=== PATIENT | male | born 1960 | race Caucasian/White ===

== ENCOUNTER 2016-11-23 19:24 | Inpatient (IN) | payer OTHER ==
[~2016-11-23] VITALS: Ht 170.2 cm; Wt 83.9 kg
--- NOTE | 2016-11-23 19:34 | ED CARDIAC/CP/PALPITATIONS ---
History of Present Illness General Chief Complaint: Chest Pain Stated Complaint: SIB NADIRA FOR CP Source: patient Exam Limitations: no limitations Vital Signs & Intake/Output Vital Signs & Intake/Output Vital Signs Date Time Temp Pulse Resp B/P Pulse O2 O2 Flow FiO2 Ox Delivery Rate 11/235 79 18 126/77 98 Nasal 2.0L Cannula 11/23 2110 102/71 11/23 2100 109/71 11/23 2054 116/67 11/23 2014 118/76 11/23 2009 88 22 128/78 11/23 1950 85 Nasal 2.0L Cannula 11/23 1940 88 22 128/78 98 Room Air Allergies Coded Allergies: No Known Allergies (11/23/16) Reconcile Medications Amlodipine Besylate 2.5 MG TABLET 1 TAB PO DAILY BP (Reported) Atorvastatin Calcium 20 MG TABLET 1 TAB PO DAILY CHOLESTEROL (Reported) Reason to Stop at ADM: WILL CHANGE DOSE TO 40 Glyburide/Metformin HCl (Glyburide-Metformin 2.5-500 MG) 2.5 MG-500 MG TABLET 2 TAB PO BID DM (Reported) Reason to Stop at ADM: ON ISS Ibuprofen (Advil) 200 MG CAPSULE 2 TAB PO PRN PAIN (Reported) Losartan Potassium 50 MG TABLET 1 TAB PO DAILY BP (Reported) Reason to Stop at ADM: STARTING BETA MELISSA AND NITRO, ALREADY BORDERLINE LOW BP Sitagliptin Phosphate (Januvia) 100 MG TABLET 1 TAB PO DAILY DM (Reported) Reason to Stop at ADM: ISS Triage Nurses Notes Reviewed? yes Onset: Gradual Duration: week(s):, waxing and waning Timing: recent history Quality/Severity: moderate Location: central Radiation: no radiation Activities at Onset: none Prior Chest Pain/Card Workup: stress test Associated Symptoms: diaphoresis HPI: 56-year-old gentleman history of hyperlipidemia, hypertension, diabetes presents with 1.5 weeks of intermittent chest pain. He states that he often experiences chest pain with mild diaphoresis and occasional radiation down his left arm with exertion. He saw his primary care doctor who ordered a stress test which was done this morning. The stress test was positive. His primary care doctor referred him to the emergency department. Upon arrival, he states that the pain is 4 out of 10. He has no diaphoresis dizziness or radiation at present. Past History Travel History Traveled to [place] past 21 day No Medical History Any Pertinent Medical History? see below for history Cardiovascular: hyperlipidemia, myocardial infarction Endocrine: diabetes Surgical History Surgical History: none Family History Hx Contributory? No Review of Systems Review of Systems Constitutional: Reports: no symptoms. EENTM: Reports: no symptoms. Respiratory: Reports: no symptoms. Cardiovascular: Reports: no symptoms. GI: Reports: no symptoms. Genitourinary: Reports: no symptoms. Musculoskeletal: Reports: no symptoms. Skin: Reports: no symptoms. Neurological/Psychological: Reports: no symptoms. Hematologic/Endocrine: Reports: no symptoms. Immunologic/Allergic: Reports: no symptoms. All Other Systems: Reviewed and Negative Physical Exam Physical Exam General Appearance: well developed/nourished, mild distress Head: atraumatic, normal appearance Eyes: Bilateral: normal appearance. Ears, Nose, Throat: normal pharynx, normal ENT inspection Neck: normal inspection, supple, full range of motion Respiratory: normal breath sounds, chest non-tender, no respiratory distress, quiet respiration, lungs clear Cardiovascular: regular rate/rhythm Gastrointestinal: normal bowel sounds, soft, non-tender, no organomegaly Rectal: normal exam, normal rectal tone, heme negative stool Back: normal inspection, normal range of motion Extremities: normal inspection, normal capillary refill, normal range of motion, no edema Neurologic/Psych: no motor/sensory deficits, awake, alert, oriented x 3 Skin: intact, normal color, warm/dry Core Measures ACS in differential dx? No Severe Sepsis Present: No Septic Shock Present: No Progress Differential Diagnosis: AMI, CHF/pulm edema, pneumonia, pulmonary embolism, unstable angina, WPW syndrome Plan of Care: Orders Procedure Date/time Status Heart Healthy Diet 11/24 B Active TROPONIN LEVEL 11/24 0800 Active EKG 11/24 0800 Active ECHOCARDIOGRAM 11/24 0700 Active LIPID PANEL 11/24 0500 Active CBC WITHOUT DIFFERENTIAL 11/24 0500 Active BASIC ELECTROLYTES PLUS BUN&CR 11/24 0500 Active TROPONIN LEVEL 11/24 0200 Active EKG 11/24 0200 Active VRE ACTIVE SURVIELLANCE 11/23 231 Active ACTIVE SURVEILLANCE NARES 11/23 231 Active Lab Add-on Test 11/23 230 Active Pathway - chart 11/23 2218 Active Code Status 11/23 2218 Active Patient Data 11/23 2119 Active Admit to inpatient 11/23 2049 Active EKG 11/23 2033 Active Intake & Output 11/23 2011 Active GLYCOSYLATED HGB 02/24 1940 Active TROPONIN LEVEL 11/23 1935 Complete PARTIAL THROMBOPLASTIN TIME 11/23 1935 Complete PROTHROMBIN TIME 11/23 1935 Complete LIPASE 11/23 1935 Complete HEPATIC FUNCTION PANEL 11/23 1935 Complete CBC WITHOUT DIFFERENTIAL 11/23 1935 Complete BASIC METABOLIC PANEL 11/23 1935 Complete AMYLASE 11/23 1935 Complete EKG 11/23 1928 Active EKG 11/23 1927 Active Pathway - chart 11/23 UNK Active House Staff 11/23 UNK Active Hemoccult 11/23 UNK Active FingerStick- Glucose 11/23 UNK Active Current Medications Sig/Vaelrie Start time Last Medication Dose Stop Time Status Admin Atorvastatin Calcium 40 MG 1700 11/24 1700 UNVr (Lipitor) Aspirin 81 MG DAILY 11/24 1000 UNVr (Aspirin) Clopidogrel Bisulfate 75 MG DAILY 11/24 1000 UNVr (Plavix) Metoprolol Tartrate 12.5 MG BID 11/24 1000 UNVr (Lopressor) Insulin Aspart 0 TIDAC 11/24 0800 UNVr (NovoLOG) Nitroglycerin 0.5 GM Q6 11/24 0600 UNVr (Nitro-Bid) Acetaminophen 650 MG Q6P PRN 11/23 2229 AC (Tylenol) Heparin Sodium 25,000 UNIT Q24H 11/23 2229 UNVr (Porcine) (Heparin) Sodium Chloride 500 ML Nitroglycerin 0.4 MG Q 5 MINUTES X 3 DO.. 11/23 2229 UNVr (Nitrostat) Oxycodone/ 1 TAB Q6P PRN 11/23 2229 UNVr Acetaminophen (Percocet) Oxycodone/ 2 TAB Q6P PRN 11/23 2229 UNVr Acetaminophen (Percocet) Laboratory Tests 11/23/161939: Hemoglobin A1c Pending 11/23/161939: Anion Gap 16, Estimated GFR > 60, BUN/Creatinine Ratio 15.8, Glucose 130 H, Calcium 9.8, Total Bilirubin 0.5, Direct Bilirubin 0.4, AST 29, ALT 54, Alkaline Phosphatase 55, Troponin I < 0.01, Total Protein 7.6, Albumin 4.6, Amylase 62, Lipase 129, PT 11.0, INR 1.05, APTT 31, CBC w Diff NO MAN DIFF REQ, RBC 5.28, MCV 91.9, MCH 29.8, RDW 13.5, MPV 9.3, Gran % 58.7, Lymphocytes % 29.5, Monocytes % 8.1, Eosinophils % 1.5, Basophils % 2.2 H, Absolute Granulocytes 6.7 H, Absolute Lymphocytes 3.4, Absolute Monocytes 0.9 H, Absolute Eosinophils 0.2, Absolute Basophils 0.2, PUBS MCHC 32.4 L Microbiology 11/23 2312 UPPER RESP: Surveillance Culture - ORD 11/23 2312 GI: Surveillance Culture - ORD Diagnostic Imaging: Viewed by Me: Nuclear Medicine. Discussed w/RAD: Nuclear Medicine. Radiology Impression: cardiac spect scan... abnormal, with reversible deficit as below. , ct angio... no pe. full report below. CXR Impression: no acute abnormality, no infiltrates, normal size heart, normal mediastinum Initial ED EKG: normal axis, normal intervals, normal p-waves, normal QRS complex, normal sinus rhythm Repeat EKG: unchanged Comments: PATIENT: ANTOINE FLOWERS PRESENT AGE: 56 PATIENT ACCOUNT NO: [id number] : 58 LOCATION: [facility] ORDERING PHYSICIAN: ZAHRA CONNER MD SERVICE DATE: 11/23/16 EXAM TYPE: CAT - CTA CHEST-PULMONARY EMBOLISM EXAMINATION: CT ANGIOGRAM OF THE CHEST WITH AND WITHOUT CONTRAST (CT PULMONARY ANGIOGRAM FOR PE) CLINICAL INFORMATION: 56-year-old male patient with chest pain. COMPARISON: Chest x-ray done earlier this evening. CT of the chest done on 11/09/2011. (Emphysema). TECHNIQUE: Prior to contrast administration, noncontrast localization images were obtained. Subsequently, multidetector volumetric imaging was performed from the thoracic inlet to below the diaphragms following the administration of 80 mL Optiray 350 intravenous contrast. No contrast reaction reported Sagittal, coronal, and MIP oblique sagittal reformatted images were obtained on the CT workstation, uploaded to PACS, and reviewed. Total exam dose-length product 518 mGy-cm FINDINGS: The data center consultant is unrevealing. QUALITY OF STUDY/CONTRAST BOLUS: Excellent. PULMONARY ARTERIES: No central or segmental pulmonary emboli. THORACIC AORTA: No aneurysm or dissection. LUNG: No focal consolidation, nodules or masses. PLEURA: No pleural effusion or pneumothorax. MEDIASTINUM: Normal heart size. No pericardial effusion. No significant hilar or mediastinal lymphadenopathy. Subcentimeter lymph nodes are present in the AP window. No evidence of septal bowing or right heart strain. CHEST WALL/AXILLA: No axillary or internal mammary lymphadenopathy. OSSEOUS STRUCTURES: No acute or suspicious osseous abnormality. UPPER ABDOMEN: The liver is diffusely infiltrated by fat. Focal area of fatty sparing is seen in the gallbladder fossa. The stomach is considerably distended by a recently ingested food. A small accessory spleen is evident. No reflux of contrast into the hepatic veins to suggest elevated right heart pressures. IMPRESSION: No evidence of pulmonary emboli. No acute lung disease. Fatty liver. Normal thoracic aorta. VTE: negative DICTATED BY: ANIL PAUL MD DATE/TIME DICTATED:11/23/162253 DEICER REPAIRER ELECTRIC:NGA DATE/TIME TRANSCRIBED:11/23/162253 CONFIDENTIAL, DO NOT COPY WITHOUT APPROPRIATE AUTHORIZATION. <Electronically signed in Other Vendor System> SIGNED BY: ANIL PAUL MD [id number] PATIENT: ANTOINE FLOWERS PRESENT AGE: 56 PATIENT ACCOUNT NO: [id number] : 58 LOCATION: [facility] ORDERING PHYSICIAN: PRISCILLA WADDELL DO SERVICE DATE: 11/23/16 EXAM TYPE: NUC - MYOCARDIAL PERFUSION IMAGING EXERCISE STRESS AND RESTING SPECT MYOCARDIAL PERFUSION IMAGING STUDY WITH GATED SPECT IMAGES: CLINICAL INDICATION: Chest pain, hypertension. PROCEDURE: Regional myocardial perfusion was assessed using a 1 day protocol. Stress images were obtained on 11/23/2016 following the intravenous administration of 18.8 mCi Tc 99m Myoview. Stress was performed using the standard Luc protocol, with the patient reaching a peak heart rate of 86% maximal predicted heart rate. Rest images were obtained 11/23/2016 following the intravenous administration of 29.2 mCi Technetium 99m Myoview. Single photon emission tomographic (SPECT) images were obtained. SPECT images were acquired in a 64 x 64 matrix of 64 projections over 180 degrees. These were reconstructed into standard short axis, horizontal and vertical long axis cardiac projections. FINDINGS: The post stress images show the left ventricular chamber to be normal in size. There is a small region of moderately to markedly diminished activity involving the mid and basal segments of the inferior wall and this probably extends slightly into the apical inferior wall segment. The activity in the other brasher appears normal. Side of the inferior wall abnormality may be due to attenuation by the adjacent diaphragm which is well visualized on review of the 4 acquired projections. The rest images also show a small region of moderately decreased activity in the inferior wall, similar to the post stress images but smaller in size with little no involvement at the apical inferior wall. The other brasher appear normal and are unchanged from the post stress images. The stress images were obtained using a gated SPECT technique, which permits visualization of wall motion and calculation of the left ventricular ejection fraction. No left ventricular wall motion abnormalities are noted. The calculated left ventricular ejection fraction is 45% on the stress study. No previous study is available for comparison. IMPRESSION: Probable abnormal study demonstrating a small perfusion abnormality involving the inferior wall, with minimal reversible component suggested at the apical inferior wall. There is significant attenuation of the inferior wall by the adjacent diaphragm, and the latter could be responsible for most of this decreased activity, but there does appear to BE a significant change in the apical inferior wall suggesting some significant reversible ischemia in this region. Left ventricular wall motion appears normal and the ejection fraction is at the lower limits of normal. DICTATED BY: KAILA SHRESTHA MD DATE/TIME DICTATED:11/23/161535 DEICER REPAIRER ELECTRIC:NGA DATE/TIME TRANSCRIBED:11/23/161535 CONFIDENTIAL, DO NOT COPY WITHOUT APPROPRIATE AUTHORIZATION. <Electronically signed in Other Vendor System> SIGNED BY: KAILA SHRESTHA MD [id number] Departure Departure Disposition: STILL A PATIENT Condition: Stable Clinical Impression Primary Impression: Unstable angina Referrals: PRISCILLA WADDELL DO (PCP/Family) Departure Forms: Customer Survey General Discharge Information Comments 11/23/16, 21:00.... discussed with dr. best x2.... trop negative, ekg benign x 2, pt with 1.5 weeks of chest pain... ct angio ordered to assess for PE... pt to be admitted to ICU. Given his benign EKG and negative troponin, no need for urgent at present. Admission Note Spoke With: AGA SENA MD Documentation of Exam: Documentation of any treatments & extenuating circumstances including Concerns Regarding Discharge (functional status, medication knowledge or non-compliance, living conditions, etc.) that warrant an admission rather than observation: Patient with chest pain consistent with unstable angina given his positive stress test this morning. He'll be admitted to the ICU for medical management. Critical Care Note Critical Care Note Critical Care Time: 30-74 min Comments: pt given nitrates, heparin, aspirin, bblocker, morphine... discussed with family at length, dr. nasir flores 2, hospitalist.
[2016-11-23 19:53] LABS: ABSOLUTE BASOPHIL COUNT 0.2 /CUMM (0.0-0.2); ABSOLUTE EOSINOPHIL COUNT 0.2 /CUMM (0.0-0.7); ABSOLUTE GRANULOCYTE CT 6.7 /CUMM (1.4-6.5); ABSOLUTE LYMPH COUNT 3.4 /CUMM (1.2-3.4); ABSOLUTE MONOCYTE COUNT 0.9 /CUMM (0.10-0.60); BASOPHIL % 2.2 % (0.0-2.0); EOSINOPHIL % 1.5 % (0-5); GRANULOCYTE % 58.7 % (42.2-75.2); HEMATOCRIT 48.6 % (42-52); MEAN CORPUSCULAR HGB 29.8 PG (27.0-31.0); MEAN CORPUSCULAR HGB CONC 32.4 G/DL (33.0-37.0); MEAN CORPUSCULAR VOLUME 91.9 FL (80.0-94.0); MEAN PLATELET VOLUME 9.3 FL (7.4-10.4); RBC DISTRIBUTION WIDTH 13.5 % (11.5-14.5); RED BLOOD CELL CT 5.28 /CUMM (4.70-6.10)
[2016-11-23 20:07] LABS: PTT 31 SEC (25-37); WHITE BLOOD CELL COUNT 11.8 /CUMM (4.8-10.8)
[2016-11-23 20:08] LABS: PLATELET COUNT 245 /CUMM (130-400)
[2016-11-23] MEDS ORDERED: AMLODIPINE BES2.5 M1 PO (21:15)
[2016-11-23] MEDS ORDERED: JANUVIA100 M1 PO (21:15)
[2016-11-23] MEDS ORDERED: LOSARTAN POTASS50 M1 PO (21:16)
[2016-11-23] MEDS ORDERED: GLYBURIDE-METF1 EAC1 PO (21:16)
[2016-11-23] MEDS ORDERED: ATORVASTATIN CA20 M1 PO (21:17)
[2016-11-23] MEDS ORDERED: ADVIL200 M1 PO (21:18)
--- NOTE | 2016-11-23 21:27 | RADIOLOGY REPORT ---
EXAMINATION: XR PORTABLE CHEST CLINICAL INFORMATION: Chest pain COMPARISON: 10/29/2013 TECHNIQUE: Portable AP view of the chest was obtained. FINDINGS: The cardiomediastinal silhouette is normal. The lungs are clear. No consolidation, pulmonary edema, pleural effusion, or pneumothorax. Lung volumes are lower than on the prior study. No acute osseous abnormalities. IMPRESSION: Low lung volumes without acute abnormality.
--- NOTE | 2016-11-23 22:44 | History & Physical ---
[facility]229: General Information and HPI MD Statement: I have seen and personally examined ANTOINE FLOWERS and documented this H&P. The patient is a 56 year old M who presented with a patient stated chief complaint of CHEST PAIN. Source of Information: patient, , Diana Exam Limitations: no limitations History of Present Illness: 56 year old man, with a past medical history of hypertension, non-insuli dependent diabetes, hyperlipidemia, GERD, presents to the ED today with a complian of chest pain. According to the patient he started having chest pain 1.5 weeks ago, intermittent, initially 7/10, pressure like, as if some body is sitting on his chest, initially only substernal but since the past couple of days it had started radiating to the left shoulder. At the time the chest pain initially started a week and a half ago, he does not recall doing any strebous work and his pain is not related to activity but has it even if he is resting. He had a stress test with Dr. Thompson today during which he became diaphoretic, develop chest pressure, and had to leave it is ST depressions on his EKG when the stress test was stopped. And he was asked to come to the ED for further evaluation. In the ED the patient continued to have chest pain, 4/10, substernal, slight radiation to the left shoulder, did not resolve with sublingual nitroglycerin but eventually resolved with IV morphine. At the time of evaluation by the ICU team the patient was completely chest pain-free. The patient had been a chronic smoker, smoked 1 pack per day for 30 years but quit 20 years ago. Code with patient's the patient was recently started on amlodipine 2.5 mg, which he picked up from the pharmacy today and has not started yet. He is also diabetic, compliant with his medications, but is not regularly checking his blood sugars at home. Last random blood sugar was 145. He denies any shortness of breath, nausea vomiting diarrhea, fever or chills, abdominal pain, changes in urination, constipation. His not have a history of recent travel or recent sickness, neither does he have a history of recent admissions to the hospital. No family history of clots either. Allergies/Medications Allergies: Coded Allergies: No Known Allergies (11/23/16) Home Med list Amlodipine Besylate 2.5 MG TABLET 1 TAB PO DAILY BP (Reported) Atorvastatin Calcium 20 MG TABLET 1 TAB PO DAILY CHOLESTEROL (Reported) Reason to Stop at ADM: WILL CHANGE DOSE TO 40 Glyburide/Metformin HCl (Glyburide-Metformin 2.5-500 MG) 2.5 MG-500 MG TABLET 2 TAB PO BID DM (Reported) Reason to Stop at ADM: ON ISS Ibuprofen (Advil) 200 MG CAPSULE 2 TAB PO PRN PAIN (Reported) Losartan Potassium 50 MG TABLET 1 TAB PO DAILY BP (Reported) Reason to Stop at ADM: STARTING BETA VINNIE AND NITRO, ALREADY BORDERLINE LOW BP Sitagliptin Phosphate (Januvia) 100 MG TABLET 1 TAB PO DAILY DM (Reported) Reason to Stop at ADM: ISS Compliance With Home Meds: GOOD Past History Travel History Traveled to [place] past 21 day No Medical History Neurological: NONE EENT: NONE Cardiovascular: hyperlipidemia, hypercholesterolemia Respiratory: NONE Gastrointestinal: GERD Hepatic: NONE Renal: NONE Musculoskeletal: NONE Psychiatric: NONE Endocrine: diabetes Surgical History Surgical History: appendectomy, left knee ACL repair Past Family/Social History Family History Relations & Conditions if any FATHER (Cancer (unknown which kind)). grand father (Heart Attack at 70 years of age). Psychosocial History Where do you live? Home Who Do You Live With? spouse Services at Home: None Primary Language: Maori Smoking Status: Former Smoker (1 PPD x 30 yrs, quit 2 yrs ago) ETOH Use: occasional use Illicit Drug Use: denies illicit drug use Name of POA/HCP: Diana, , next to kin Functional Ability ADLs Independent: dressing, eating, toileting, bathing. Ambulation: independent IADLs Independent: shopping, housework, finances, food prep, telephone, transportation , medication admin. Employment History Employment Employed Profession/Employer Works for [employer] Review of Systems Review of Systems Constitutional: Reports: see HPI. EENTM: Reports: no symptoms. Cardiovascular: Reports: chest pain. Denies: edema, peripheral edema, syncope. Respiratory: Reports: cough, orthopnea, short of breath. GI: Reports: no symptoms. Genitourinary: Reports: no symptoms. Musculoskeletal: Reports: no symptoms. Skin: Reports: no symptoms. Neurological/Psychological: Reports: no symptoms. Hematologic/Endocrine: Reports: no symptoms. Immunologic/Allergic: Reports: no symptoms. Colonoscopy Testing Status: Test never done Exam & Diagnostic Data Last 24 Hrs of Vital Signs/I&O Vital Signs Date Time Temp Pulse Resp B/P Pulse O2 O2 Flow FiO2 Ox Delivery Rate 11/23 2155 79 18 126/77 98 Nasal 2.0L Cannula 11/23 2110 102/71 11/23 2100 109/71 11/23 2054 116/67 11/23 2014 118/76 11/23 2009 88 22 128/78 11/23 1950 85 Nasal 2.0L Cannula 11/23 1940 88 22 128/78 98 Room Air Physical Exam General Appearance Alert, Oriented X3, Cooperative, No Acute Distress, but anxious with facial plethora due to stress Skin No Rashes, No Breakdown, No Significant Lesion HEENT Atraumatic, PERRLA, EOMI, dry mucous membranes Neck Supple, No JVD Lymphatic Cervical nl Cardiovascular Regular Rate, Normal S1, Normal S2, No Murmurs Lungs Clear to Auscultation, Normal Air Movement Abdomen Normal Bowel Sounds, Soft, No Tenderness, No Hepatospenomegaly Neurological Normal Speech, Strength at 5/5 X4 Ext, Normal Tone, Sensation Intact, Cranial Nerves 3-12 NL Extremities No Clubbing, No Cyanosis, No Edema, Normal Pulses Vascular Normal Pulses, Pulses Symmetrical Last 24 Hrs of Labs/Rojas: Laboratory Tests 11/23/161939: Anion Gap 16, Estimated GFR > 60, BUN/Creatinine Ratio 15.8, Glucose 130 H, Calcium 9.8, Total Bilirubin 0.5, Direct Bilirubin 0.4, AST 29, ALT 54, Alkaline Phosphatase 55, Troponin I < 0.01, Total Protein 7.6, Albumin 4.6, Amylase 62, Lipase 129, PT 11.0, INR 1.05, APTT 31, CBC w Diff NO MAN DIFF REQ, RBC 5.28, MCV 91.9, MCH 29.8, RDW 13.5, MPV 9.3, Gran % 58.7, Lymphocytes % 29.5, Monocytes % 8.1, Eosinophils % 1.5, Basophils % 2.2 H, Absolute Granulocytes 6.7 H, Absolute Lymphocytes 3.4, Absolute Monocytes 0.9 H, Absolute Eosinophils 0.2, Absolute Basophils 0.2, PUBS MCHC 32.4 L Diagnostic Data EKG Results @19:32 NSR 83, minimal Q waves not meeting criteria for Q waves @ 20:40 NSR 76, no ST-Twave changes CXR Results The cardiomediastinal silhouette is normal. The lungs are clear. No consolidation, pulmonary edema, pleural effusion, or pneumothorax. Lung volumes are lower than on the prior study. No acute osseous abnormalities. IMPRESSION: Low lung volumes without acute abnormality. Assessment/Plan Assessment: 56 year old man, with a past medical history of hypertension, non-insuli dependent diabetes, hyperlipidemia, GERD, presents to the ED today with a complian of chest pain, and 1.5 weeks, and to begin, substernal, pressure-like, radiating to his shoulder, initially / at peak and a half ago, on presentation 01/07 today, resolved with IV morphine, but did not resolve with nitroglycerin, plus negative troponin, no EKG changes, normal sinus rhythm at 76 , but a positive stress stress that in the morning today with [address] depression , chest pressure and diaphoresis, being admitted to ICU for closer monitoring, with the management. Assessment: 1. Unstable angina 2. Hypertension 3. Ukn-yycgqqz-iqsxgcxoo Diabetes 4. Hyperlipidemia 5. GERD Plan: Admit to ICU Vitals according to ICU protocol 1. Unstable angina: - With the chest pain that has been going on for 1.5 weeks, intermittent, at rest, negative troponins, no EKG changes, responded to IV morphine and not nitroglycerin, with a positive stress stress, the patient is greatly principal angina. Less likely pulmonary embolism however the possibility cannot be completely ruled out in this patient has a CT scan. has been a smoker but has no history of recent travel across the family. With the ongoing chest pain, the chances of dissection seem less likely as well. - As the patient currently is chest pain-free, but troponin is negative, with no EKG changes, will continue monitoring the ICU - Loading dose of aspirin and Plavix has been given - Continue with aspirin 81 by mouth daily and Plavix 75 mg daily - Started on IV heparin after a heparin bolus - We'll start metoprolol at 12.5 by mouth twice a day - We'll change atorvastatin 20 mg 40 mg - We'll check fasting lipid panel in the morning - Guaiac was done in the ED which was negative - Was troponin is negative at 7:40 pm, will check at 2 AM and 8 AM - Check an EKG 2 AM and 8 AM - Check an echocardiogram in the morning - We will keep her nitroglycerin sublingual 0.5 when necessary chest pain - We'll start her nitroglycerin, half inch every 6 from tomorrow, watch her blood pressure as he is already borderline low with blood pressure being 102/71 - If the patient has recurrent chest pain, ongoing, any EKG changes were positive troponin, the whip operator, will be updated for possible emergent cath - For now the plan as per Dr. Thompson is to monitor over the weekend for an elective cath on Saturday 2. Hypertension: - The patient has a history of hypertension, takes losartan 50 mg daily at home - According to the , hewas recently started on amlodipine, which was prescribed on November 19, but the patient obtained have started yet - The patient's blood pressure in the after the nitroglycerin was 102/71, will monitor blood pressure and hold losartan and amlodipine for now - Important to note that he will likely be requiring nitro paste and has been started on beta vinnie as well 3. Ktt-mixfwqr-utttweaul Diabetes: - The patient takes Januvia, glyburide/metformin at home - We'll hold by mouth meds and start an insulin sliding scale - Will add on HbA1c - Serum Glucose 130 4. Hyperlipidemia: - The patient has a history of hyperlipidemia ans takes Atorvastatin 20 mg - Will change it to Atorvastatin 40 mg PO Daily - Will check fasting lipid level in am 5. GERD: - Currently o aymptoms - Takes o meds but takes ibuprofen on and off - Hold ibuprofen 6. Heart Healthy/Diabetic diet 7. Pain Pathway: Mild: Acetaminophen when necessary. Pain 1-3 Moderate: Percocet 1 tablet every 6 when necessary. Pain 4-6. Severe: Percocet 2 tablets every 6 hours when necessary pain. 7-10 8. DVT prophylaxis: The patient is on IV heparin 9. Full CODE STATUS As Ranked By This Provider Problem List: 1. Unstable angina 2. Hyperlipidemia 3. Hypertension 4. Diabetes 5. DVT prophylaxis 6. Full code status Core Measures/Miscellaneous Acute Coronary Syndrome ACS Diagnosis: Yes SHAD/ARB For EF <40% Yes ASA W/I 24hr of admit Yes Beta-Vinnie W/I 24hrs Yes LDL assessed W/I 24 hrs Yes Currently on Statin Yes Cerebrovascular Accident CVA/TIA Diagnosis: Yes Congestive Heart Failure CHF Diagnosis: Yes Venous Thromboembolism VTE Risk Factors: Acute medical illness, Age > 40, Smoking VTE Prophylaxis Ordered Inpt: [facility] d/t: No contraindications No VTE Pharm Prophylaxis d/t: No contraindications VTE Diagnosis: No VTE Type: NONE VTE Confirmed by (Test): NONE Severe Sepsis Severe Sepsis Present: No Septic Shock Septic Shock Present: No Miscellaneous Documentation Attending Case Discussed With: LISETTE SENA Primary Care Physician: PRISCILLA WADDELL DO Patient sees these Specialists Dr. Thompson, whip operator Level of Patient Care: Critical Care (CRI) Consults Needed: Consulting Specialty: Cardiology Consulting Physician: Dr. Thompson Reason for Consult: Unstable Angina Resident Review Statement Resident Statement: examined this patient, discussed with nutrition intern, agreed with nutrition intern, reviewed EMR data (avail), reviewed images Other Findings: Same as Above NATHEN ALVAREZ, [facility] 11/24/16 0204: Attending MD Review Statement Attending Statement Attending MD Statement: examined this patient, discuss w/resident/PA/EROSION CONTROL COORDINATOR, agreed w/resident/PA/EROSION CONTROL COORDINATOR, discussed with family Attending Assessment/Plan: 56 yo M with h/o HTN, T2DM, HLD, GERD, is here 1.5 week h/o substernal chest pressure radiating to the left arm, about 7/10, intermittent, mostly at rest but could be exertional, associated with diaphoresis, nausea and dizziness off and on. Today he had a stress test with Dr. Thompson, noted to have ST-T changes, diaphoresis and chest pressure during the test. The test has been read as abnormal with inferior wall abnormality with significant reversible ischemia, EF is normal. The results were relayed to patient's PCP who then advised patient to come to ER. While in the ER, he stated his chest pressure was a 4/10 and was completely relieved after morphine. On my evaluation, patient was pain free. Family h/o paternal grandfather with CAD at age 70. Vitals stable. Exam unremarkable. Guaiac negative. Labs: WBC 11.8, bicarb 21, glucose 130, trop neg, EKG: SR, 1st degree heart block, Qtc 442, no acute changes. CXR: low lung volumes, no acute abn. CTA chest: no PE or aortic dissection. 1. Unstable angina with a positive stress test, however pain free at this time. ICU admit, serial EKG and troponin, obtain Echo, aspirin, plavix, metoprolol, statin, nitropaste, IV morphine PRN, IV heparin, guaiac all stools, check lipid panel, TSH, free T4. Cardio consult. If patient develops chest discomfort or any new EKG changes, we will transfer patient for urgent cardiac cath. I discussed this personally with Dr. Thompson. Until then we will monitor him in the ICU, medical management and elective cath next week. I have explained the same to patient and his at bedside. 2. T2DM. Accucheks, check HbA1c, hold metformin, januvia and glyburide. Initiate novolog SS for now. 3. HTN. Hold losartan and amlodipine. DVT ppx IV Heparin. Full code. TTS > 35 mins
--- NOTE | 2016-11-23 23:07 | CT SCAN REPORT ---
EXAMINATION: CT ANGIOGRAM OF THE CHEST WITH AND WITHOUT CONTRAST (CT PULMONARY ANGIOGRAM FOR PE) CLINICAL INFORMATION: 56-year-old male patient with chest pain. COMPARISON: Chest x-ray done earlier this evening. CT of the chest done on 11/09/2011. (Emphysema). TECHNIQUE: Prior to contrast administration, noncontrast localization images were obtained. Subsequently, multidetector volumetric imaging was performed from the thoracic inlet to below the diaphragms following the administration of 80 mL Optiray 350 intravenous contrast. No contrast reaction reported Sagittal, coronal, and MIP oblique sagittal reformatted images were obtained on the CT workstation, uploaded to PACS, and reviewed. Total exam dose-length product 518 mGy-cm FINDINGS: The hris administrator is unrevealing. QUALITY OF STUDY/CONTRAST BOLUS: Excellent. PULMONARY ARTERIES: No central or segmental pulmonary emboli. THORACIC AORTA: No aneurysm or dissection. LUNG: No focal consolidation, nodules or masses. PLEURA: No pleural effusion or pneumothorax. MEDIASTINUM: Normal heart size. No pericardial effusion. No significant hilar or mediastinal lymphadenopathy. Subcentimeter lymph nodes are present in the AP window. No evidence of septal bowing or right heart strain. CHEST WALL/AXILLA: No axillary or internal mammary lymphadenopathy. OSSEOUS STRUCTURES: No acute or suspicious osseous abnormality. UPPER ABDOMEN: The liver is diffusely infiltrated by fat. Focal area of fatty sparing is seen in the gallbladder fossa. The stomach is considerably distended by a recently ingested food. A small accessory spleen is evident. No reflux of contrast into the hepatic veins to suggest elevated right heart pressures. IMPRESSION: No evidence of pulmonary emboli. No acute lung disease. Fatty liver. Normal thoracic aorta. VTE: negative
[2016-11-24] VITALS: BP 126/88
--- NOTE | 2016-11-24 02:00 | Admission Certification ---
Admission Certification Certification Statement - As attending physician, I certify that at the time of - admission, based on clinical presentation, severity of - symptoms, need for further diagnostic testing and - therapeutic interventions, and risk of adverse outcomes - without in-hospital treatment, in my clinical assessment, - this patient requires an acute hospital stay for a minimum - of two nights or longer. I have also considered psychsocial - factors such as support system, advanced age, financial - issues, cognitive issues, and failed out-patient treatments, - past re-admission history, safety of patient, and lack of - compliance as applicable. Specific rationale supporting this admission is: Unstable angina, positive stress test. Needs ICU level of care with initiation of IV heparin and eventual cardiac cath.
[2016-11-24 03:28] LABS: PTT 40 SEC (25-37)
[2016-11-24 07:00] LABS: ABSOLUTE EOSINOPHIL COUNT 0.2 /CUMM (0.0-0.7); MEAN CORPUSCULAR HGB 30.5 PG (27.0-31.0); MEAN CORPUSCULAR VOLUME 91.8 FL (80.0-94.0); WHITE BLOOD CELL COUNT 7.3 /CUMM (4.8-10.8)
[2016-11-24 07:04] LABS: ABSOLUTE BASOPHIL COUNT 0.1 /CUMM (0.0-0.2); ABSOLUTE GRANULOCYTE CT 3.5 /CUMM (1.4-6.5); ABSOLUTE MONOCYTE COUNT 0.6 /CUMM (0.10-0.60); BASOPHIL % 0.9 % (0.0-2.0); EOSINOPHIL % 2.3 % (0-5); GRANULOCYTE % 48.5 % (42.2-75.2); MEAN CORPUSCULAR HGB CONC 33.2 G/DL (33.0-37.0); MEAN PLATELET VOLUME 10.1 FL (7.4-10.4); PLATELET COUNT 207 /CUMM (130-400); RBC DISTRIBUTION WIDTH 13.7 % (11.5-14.5); RED BLOOD CELL CT 4.53 /CUMM (4.70-6.10)
[2016-11-24 07:07] LABS: HEMATOCRIT 41.6 % (42-52)
[2016-11-24 08:00] VITALS: BP 102/70
--- NOTE | 2016-11-24 09:10 | Cons- CRCU ---
See Addendum General Information and HPI Consulting Request Date of Consult: 11/24/16 Requested By: Lucia Babcock MD Reason for Consult: Chest pain Source of Information: patient Exam Limitations: no limitations History of Present Illness: 56 year old man, with a past medical history of hypertension, non-insuli dependent diabetes, hyperlipidemia, GERD, presents to the ED today with a complian of chest pain. According to the patient he started having chest pain 1.5 weeks ago, intermittent, initially 7/10, pressure like, as if some body is sitting on his chest, initially only substernal but since the past couple of days it had started radiating to the left shoulder. At the time the chest pain initially started a week and a half ago, he does not recall doing any strebous work and his pain is not related to activity but has it even if he is resting. He had a stress test with Dr. Thompson today during which he became diaphoretic, develop chest pressure, and had to leave it is ST depressions on his EKG when the stress test was stopped. And he was asked to come to the ED for further evaluation. In the ED the patient continued to have chest pain, 4/10, substernal, slight radiation to the left shoulder, did not resolve with sublingual nitroglycerin but eventually resolved with IV morphine. At the time of evaluation by the ICU team the patient was completely chest pain-free. The patient had been a chronic smoker, smoked 1 pack per day for 30 years but quit 20 years ago. Code with patient's the patient was recently started on amlodipine 2.5 mg, which he picked up from the pharmacy today and has not started yet. He is also diabetic, compliant with his medications, but is not regularly checking his blood sugars at home. Last random blood sugar was 145. He denies any shortness of breath, nausea vomiting diarrhea, fever or chills, abdominal pain, changes in urination, constipation. His not have a history of recent travel or recent sickness, neither does he have a history of recent admissions to the hospital. No family history of clots either. Allergies/Medications Allergies: Coded Allergies: No Known Allergies (11/23/16) Home Med List: Amlodipine Besylate 2.5 MG TABLET 1 TAB PO DAILY BP (Reported) Atorvastatin Calcium 20 MG TABLET 1 TAB PO DAILY CHOLESTEROL (Reported) Reason to Stop at ADM: WILL CHANGE DOSE TO 40 Glyburide/Metformin HCl (Glyburide-Metformin 2.5-500 MG) 2.5 MG-500 MG TABLET 2 TAB PO BID DM (Reported) Reason to Stop at ADM: ON ISS Ibuprofen (Advil) 200 MG CAPSULE 2 TAB PO PRN PAIN (Reported) Losartan Potassium 50 MG TABLET 1 TAB PO DAILY BP (Reported) Reason to Stop at ADM: STARTING BETA TONIO AND NITRO, ALREADY BORDERLINE LOW BP Sitagliptin Phosphate (Januvia) 100 MG TABLET 1 TAB PO DAILY DM (Reported) Reason to Stop at ADM: ISS Review of Systems Review of Systems Constitutional: Reports: see HPI. EENTM: Reports: no symptoms. Cardiovascular: Reports: see HPI, chest pain. Respiratory: Reports: no symptoms. GI: Reports: no symptoms. Genitourinary: Reports: no symptoms. Musculoskeletal: Reports: no symptoms. Skin: Reports: no symptoms. Neurological/Psychological: Reports: no symptoms. Hematologic/Endocrine: Reports: no symptoms. All Other Systems: Reviewed and Negative Past History Travel History Traveled to [place] past 21 day No Medical History Neurological: NONE EENT: NONE Cardiovascular: hyperlipidemia, hypercholesterolemia Respiratory: NONE Gastrointestinal: GERD Hepatic: NONE Renal: NONE Musculoskeletal: NONE Psychiatric: NONE Endocrine: diabetes Surgical History Surgical History: appendectomy, left knee ACL repair Family History Relations & Conditions If Any: FATHER (Cancer (unknown which kind)). grand father (Heart Attack at 70 years of age). Psychosocial History Where Do You Live? Home Who Do You Live With? spouse Services at Home: None Primary Language: Citizen Of [place] Smoking Status: Former Smoker (1 PPD x 30 yrs, quit 2 yrs ago) ETOH Use: occasional use Illicit Drug Use: denies illicit drug use Name of POA/HCP: Diana, , next to kin Functional Ability ADLs Independent: dressing, eating, toileting, bathing. Ambulation: independent IADLs Independent: shopping, housework, finances, food prep, telephone, transportation , medication admin. Employment History Employment: Employed Profession/Employer: Works for [employer] Exam & Diagnostic Data Last 24 Hrs of Vital Signs/I&O Vital Signs Date Time Temp Pulse Resp B/P Pulse O2 O2 Flow FiO2 Ox Delivery Rate 11/24 1200 96 Room Air 11/24 1045 70 122/76 11/24 0800 97.1 76 20 102/70 97 Room Air 11/24 0800 96 Room Air 11/24 0400 95 Room Air 11/24 0010 97 Nasal 2.0L Cannula 11/24 0000 97.9 80 20 126/88 97 Nasal 2.0L Cannula 11/23 2318 97.4 71 16 132/80 98 Room Air 11/23 2318 78 18 132/50 98 Nasal 2.0L Cannula 11/23 2155 79 18 126/77 98 Nasal 2.0L Cannula 11/231 102/71 11/231 109/71 11/23 2054 116/67 11/23 2014 118/76 11/23 2009 88 22 128/78 11/23 1950 85 Nasal 2.0L Cannula 11/23 1941 88 22 128/78 98 Room Air Intake & Output 11/24 1600 11/24 0800 11/24 0000 Intake Total 645 580 Output Total 600 Balance 645 -20 Intake, IV 165 180 Intake, Oral 480 400 Number 1 Bowel Movements Output, Urine 600 Patient 83.915 kg 83.461 kg Weight Physical Exam General Appearance: well developed/nourished, no apparent distress, alert, awake , anxious Other Physical Findings: Skin No Rashes, No Breakdown, No Significant Lesion HEENT Atraumatic, PERRLA, EOMI, dry mucous membranes Neck Supple, No JVD Lymphatic Cervical nl Cardiovascular Regular Rate, Normal S1, Normal S2, No Murmurs Lungs Clear to Auscultation, Normal Air Movement Abdomen Normal Bowel Sounds, Soft, No Tenderness, No Hepatospenomegaly Neurological Normal Speech, Strength at 5/5 X4 Ext, Normal Tone, Sensation Intact, Cranial Nerves 3-12 NL Extremities No Clubbing, No Cyanosis, No Edema, Normal Pulses Vascular Normal Pulses, Pulses Symmetrical Last 48 Hrs of Labs/Rojas: Laboratory Tests 11/24/16 1400: Troponin I Cancelled 11/24/16 1050: APTT 101 *H 11/24/16 0820: Phosphorus 4.2, Magnesium 1.9, Troponin I < 0.01 11/24/16 0630: Anion Gap 12, Estimated GFR > 60, BUN/Creatinine Ratio 24.4, Triglycerides 227 H, Cholesterol 113, LDL Cholesterol, Calc 21 L, HDL Cholesterol 47, Cholesterol /HDL Ratio 2, CBC w Diff NO MAN DIFF REQ, RBC 4.53 L, MCV 91.8, MCH 30.5, RDW 13.7, MPV 10.1, Gran % 48.5, Lymphocytes % 40.7, Monocytes % 7.6, Eosinophils % 2.3, Basophils % 0.9, Absolute Granulocytes 3.5, Absolute Lymphocytes 3.0, Absolute Monocytes 0.6, Absolute Eosinophils 0.2, Absolute Basophils 0.1, PUBS MCHC 33.2 11/24/16 0245: Troponin I < 0.01, TSH 2.520, Thyroxine (T4) 7.6, APTT 40 H 11/23/161939: Hemoglobin A1c Pending 11/23/161939: Anion Gap 16, Estimated GFR > 60, BUN/Creatinine Ratio 15.8, Glucose 130 H, Calcium 9.8, Total Bilirubin 0.5, Direct Bilirubin 0.4, AST 29, ALT 54, Alkaline Phosphatase 55, Troponin I < 0.01, Total Protein 7.6, Albumin 4.6, Amylase 62, Lipase 129, PT 11.0, INR 1.05, APTT 31, CBC w Diff NO MAN DIFF REQ, RBC 5.28, MCV 91.9, MCH 29.8, RDW 13.5, MPV 9.3, Gran % 58.7, Lymphocytes % 29.5, Monocytes % 8.1, Eosinophils % 1.5, Basophils % 2.2 H, Absolute Granulocytes 6.7 H, Absolute Lymphocytes 3.4, Absolute Monocytes 0.9 H, Absolute Eosinophils 0.2, Absolute Basophils 0.2, PUBS MCHC 32.4 L Diagnostic Data EKG Results 11/23/16 19:32 NSR 83, minimal Q waves not meeting criteria for Q waves 11/23/16 20:40 NSR 76, no ST-Twave changes 11/24/16 0800: Normal rate, sinus rhythm, no ST-T changes than the previous one Assessment/Plan Impression/Plan: 56 yo M with pmh of hypertension, non-insuli dependent diabetes, hyperlipidemia, GERD, presents to the ED today with a complian of chest pain, and 1.5 weeks, and to begin, substernal, pressure-like, radiating to his shoulder, initially 7/10 at peak and a half ago, on presentation 01/07 today, resolved with IV morphine, but did not resolve with nitroglycerin, plus negative troponin, no EKG changes, normal sinus rhythm at 76, but a positive stress stress that in the morning today with [address] depression, chest pressure and diaphoresis, being admitted to ICU for closer monitoring, with the management. #Unstable angina The patient has clinical symptoms suggestive of unstable angina. His troponin has been less than 0.01 for three times, and EKG has has not shown any changes. He has been on IV heparin drip. He does not have any chest pain or discomfort anymore. -Plan to transfer to telemetry, she has been stable -Plan to continue IV heparin drip for a total of 48 hours and then discontinue -Follow up on echocardiogram -Continue statin, beta-tonio, antiplatelets #Hypertension Continue home medications, beta tonio #Diabetes mellitus On insulin NovoLog sliding scale, diabetic diet, and Accu-Cheks TID/HS #Hyperlipidemia Continue statins #GERD -Continue PPI #Diet: Heart healthy #DVT ppx: IV heaprin drip #Code status: Full code Consult Acknowledgment - Thank you for your consult request.
[2016-11-24 12:01] LABS: PTT 101 SEC (25-37)
--- NOTE | 2016-11-24 12:42 | Cons- Cardiology ---
General Information and HPI Consulting Request Date of Consult: 11/24/16 Requested By: MAYUR PENA M.D Reason for Consult: Unstable angina pectoris. Source of Information: patient, family, old records Exam Limitations: no limitations History of Present Illness: Mr. Sharan Dawn is a 56-year-old male with a long-standing history of tobacco use, chronic obstructive pulmonary disease, hypertension, dyslipidemia, diabetes mellitus, and gastroesophageal reflux disease who began experiencing episodes of chest discomfort approximately 1-1/2 weeks ago. His first episode occurred while he was at work and was not associated with heavy exertion. He described experiencing a substernal "tightness" sensation of 7/10 intensity without radiation, with some associated nausea and dizziness that lasted 3-4 hours before spontaneously resolving. The following day a similar episode, and all respects, occurred. He then recalls feeling improved for a couple of days, but then again began experiencing discomfort at a slightly lower intensity of 4-6/10 that became constant and was also at times associated with some shortness of breath, nausea, and diaphoresis. While the discomfort would improve it never completely resolved. As a result of these symptoms he contacted his primary care physician (Darwin Aguirre D.O.) who performed an electrocardiogram in his office, that was reportedly unremarkable, and set him up for a nuclear stress test and echocardiogram. I supervised Mr. Dawn's stress test yesterday (11/03/2016) during which she experienced worsening chest tightness and had downsloping ST segment depression of over 1.5 mm consistent with a positive study. Unfortunately, his chest discomfort abated to his baseline. It was suggested that he consider EP evaluation. Dr. Aguirre was also contacted and agreed with our recommendations. The patient and granddaughter, but later did opt to seek evaluation/management at the ED. Of note is the fact that his nuclear images also revealed evidence of ischemia in inferior wall distribution. At present, Mr. Dawn is feeling improved and denies any chest discomfort, palpitations, shortness of breath, nausea, dizziness, etc. he states that the chest discomfort that have been present for over a week and a half resolved last evening. Allergies/Medications Allergies: Coded Allergies: No Known Allergies (11/23/16) Home Med List: Amlodipine Besylate 2.5 MG TABLET 1 TAB PO DAILY BP (Reported) Atorvastatin Calcium 20 MG TABLET 1 TAB PO DAILY CHOLESTEROL (Reported) Reason to Stop at ADM: WILL CHANGE DOSE TO 40 Glyburide/Metformin HCl (Glyburide-Metformin 2.5-500 MG) 2.5 MG-500 MG TABLET 2 TAB PO BID DM (Reported) Reason to Stop at ADM: ON ISS Ibuprofen (Advil) 200 MG CAPSULE 2 TAB PO PRN PAIN (Reported) Losartan Potassium 50 MG TABLET 1 TAB PO DAILY BP (Reported) Reason to Stop at ADM: STARTING BETA TONIO AND NITRO, ALREADY BORDERLINE LOW BP Sitagliptin Phosphate (Januvia) 100 MG TABLET 1 TAB PO DAILY DM (Reported) Reason to Stop at ADM: ISS Review of Systems Review of Systems: A 14 point system review was obtained and was noncontributory, other than as above, except for the fact the patient wears glasses, and has chronic back problems she has received epidural injections. Past History Travel History Traveled to [place] past 21 day No Medical History Neurological: NONE EENT: NONE Cardiovascular: hyperlipidemia, hypercholesterolemia Respiratory: NONE Gastrointestinal: GERD Hepatic: NONE Renal: NONE Musculoskeletal: NONE, chronic back pain Psychiatric: NONE Endocrine: diabetes Surgical History Surgical History: appendectomy, left knee ACL repair Family History Relations & Conditions If Any: FATHER (Cancer (unknown which kind)). grand father (Heart Attack at 70 years of age). Psychosocial History Where Do You Live? Home Who Do You Live With? spouse Services at Home: None Primary Language: Surinamese Smoking Status: Former Smoker (1 PPD x 30 yrs, quit 2 yrs ago) ETOH Use: occasional use Illicit Drug Use: denies illicit drug use Name of POA/HCP: Diana, , next to kin Functional Ability ADLs Independent: dressing, eating, toileting, bathing. Ambulation: independent IADLs Independent: shopping, housework, finances, food prep, telephone, transportation , medication admin. Employment History Employment: Employed Profession/Employer Works for [employer] Exam & Diagnostic Data Vital Signs and I&O Vital Signs Date Time Temp Pulse Resp B/P Pulse O2 O2 Flow FiO2 Ox Delivery Rate 11/24 1045 70 122/76 11/24 0800 97.1 76 20 102/70 97 Room Air 11/24 0800 96 Room Air 11/24 0400 95 Room Air 11/24 0010 97 Nasal 2.0L Cannula 11/24 0000 97.9 80 20 126/88 97 Nasal 2.0L Cannula 11/238 97.4 71 16 132/80 98 Room Air 11/238 78 18 132/50 98 Nasal 2.0L Cannula 11/235 79 18 126/77 98 Nasal 2.0L Cannula 11/231 102/71 11/231 109/71 11/235 116/67 11/23 2014 118/76 11/23 2009 88 22 128/78 11/23 1950 85 Nasal 2.0L Cannula 11/23 1940 88 22 128/78 98 Room Air Intake & Output 11/24 0800 11/24 0000 11/23 1600 11/23 0800 11/23 0000 Intake Total 580 Output Total 600 Balance -20 Intake, IV 180 Intake, Oral 400 Number 1 Bowel Movements Output, Urine 600 Patient 185 lb 184 lb Weight Physical Exam: Well-developed, well-nourished middle-aged male in no acute distress. Vital signs: See above. HEENT: Normocephalic, atraumatic, EOMI, moist Membranes. Neck: No JVD, no bruits. Lungs: Clear to auscultation bilaterally. Heart: S1, S2 with no murmur, gallop, or rub appreciated. PMI fifth ICS MCL. Abdomen: Soft, nontender, positive bowel sounds. Extremities: No edema. Labs/Rojas Results: Laboratory Tests 11/24 11/24 11/24 11/24 1050 0820 0630 0245 Chemistry Sodium (137 - 145 mmol/L) 140 Potassium (3.5 - 5.1 mmol/L) 3.9 Chloride (98 - 107 mmol/L) 106 Carbon Dioxide (22 - 30 mmol/L) 22 Anion Gap (5 - 16) 12 BUN (9 - 20 mg/dL) 22 H Creatinine (0.7 - 1.2 mg/dL) 0.9 Estimated GFR (>60 ml/min) > 60 BUN/Creatinine Ratio (7 - 25 %) 24.4 Phosphorus (2.5 - 4.5 mg/dL) 4.2 Magnesium (1.6 - 2.3 mg/dL) 1.9 Troponin I (<0.11 ng/ml) < 0.01 < 0.01 Triglycerides (<150 mg/dL) 227 H Cholesterol (< 200 MG/DL) 113 LDL Cholesterol, Calc (65 - 129 mg/dL) 21 L HDL Cholesterol (40 - 60 mg/dL) 47 Cholesterol/HDL Ratio (0.00 - 4.88 %) 2 TSH (0.270 - 4.200 uIU/mL) 2.520 Thyroxine (T4) (4.5 - 10.9 ug/dL) 7.6 Coagulation APTT (25 - 37 SEC) 101 *H 40 H Hematology CBC w Diff NO MAN DIFF REQ WBC (4.8 - 10.8 /CUMM) 7.3 RBC (4.70 - 6.10 /CUMM) 4.53 L Hgb (14.0 - 18.0 G/DL) 13.8 L Hct (42 - 52 %) 41.6 L MCV (80.0 - 94.0 FL) 91.8 MCH (27.0 - 31.0 PG) 30.5 RDW (11.5 - 14.5 %) 13.7 Plt Count (130 - 400 /CUMM) 207 MPV (7.4 - 10.4 FL) 10.1 Gran % (42.2 - 75.2 %) 48.5 Lymphocytes % (20.5 - 51.1 %) 40.7 Monocytes % (1.7 - 9.3 %) 7.6 Eosinophils % (0 - 5 %) 2.3 Basophils % (0.0 - 2.0 %) 0.9 Absolute Granulocytes (1.4 - 6.5 /CUMM) 3.5 Absolute Lymphocytes (1.2 - 3.4 /CUMM) 3.0 Absolute Monocytes (0.10 - 0.60 /CUMM) 0.6 Absolute Eosinophils (0.0 - 0.7 /CUMM) 0.2 Absolute Basophils (0.0 - 0.2 /CUMM) 0.1 PUBS MCHC (33.0 - 37.0 G/DL) 33.2 11/230 Chemistry Sodium (137 - 145 mmol/L) 140 Potassium (3.5 - 5.1 mmol/L) 4.5 Chloride (98 - 107 mmol/L) 103 Carbon Dioxide (22 - 30 mmol/L) 21 L Anion Gap (5 - 16) 16 BUN (9 - 20 mg/dL) 19 Creatinine (0.7 - 1.2 mg/dL) 1.2 Estimated GFR (>60 ml/min) > 60 BUN/Creatinine Ratio (7 - 25 %) 15.8 Glucose (65 - 99 mg/dL) 130 H Hemoglobin A1c Pending Calcium (8.4 - 10.2 mg/dL) 9.8 Total Bilirubin (0.2 - 1.3 mg/dL) 0.5 Direct Bilirubin (< 0.4 mg/dL) 0.4 AST (17 - 59 U/L) 29 ALT (21 - 72 U/L) 54 Alkaline Phosphatase (< 127 U/L) 55 Troponin I (<0.11 ng/ml) < 0.01 Total Protein (6.3 - 8.2 g/dL) 7.6 Albumin (3.5 - 5.0 g/dL) 4.6 Amylase (30 - 110 U/L) 62 Lipase (23 - 300 U/L) 129 Coagulation PT (9.4 - 12.5 SEC) 11.0 INR (0.90 - 1.17) 1.05 APTT (25 - 37 SEC) 31 Hematology CBC w Diff NO MAN DIFF REQ WBC (4.8 - 10.8 /CUMM) 11.8 H RBC (4.70 - 6.10 /CUMM) 5.28 Hgb (14.0 - 18.0 G/DL) 15.8 Hct (42 - 52 %) 48.6 MCV (80.0 - 94.0 FL) 91.9 MCH (27.0 - 31.0 PG) 29.8 RDW (11.5 - 14.5 %) 13.5 Plt Count (130 - 400 /CUMM) 245 MPV (7.4 - 10.4 FL) 9.3 Gran % (42.2 - 75.2 %) 58.7 Lymphocytes % (20.5 - 51.1 %) 29.5 Monocytes % (1.7 - 9.3 %) 8.1 Eosinophils % (0 - 5 %) 1.5 Basophils % (0.0 - 2.0 %) 2.2 H Absolute Granulocytes (1.4 - 6.5 /CUMM) 6.7 H Absolute Lymphocytes (1.2 - 3.4 /CUMM) 3.4 Absolute Monocytes (0.10 - 0.60 /CUMM) 0.9 H Absolute Eosinophils (0.0 - 0.7 /CUMM) 0.2 Absolute Basophils (0.0 - 0.2 /CUMM) 0.2 PUBS MCHC (33.0 - 37.0 G/DL) 32.4 L Diagnostic Data EKG Results (11/24/2016) sinus rhythm, first-degree AV block, and minor nondiagnostic inferior T-wave abnormalities in leads III, aVF. CXR Results (11/23/2016) Low lung volumes without acute abnormality. Other Results Chest CT (11/23/2016) No evidence of pulmonary emboli. No acute lung disease. Fatty liver. Normal thoracic aorta. Assessment/Plan Assessment/Plan Mr. Dawn is a middle-aged male with a long-standing history of tobacco use discontinued 2 years ago, chronic obstructive pulmonary disease, hypertension, dyslipidemia, diabetes mellitus, and gastroesophageal reflux disease who began experiencing episodes of chest discomfort approximately 1-1/2 weeks ago with some typical and atypical features, and who had clinical, electrocardiographic, and nuclear evidence of ischemia on treadmill stress testing performed yesterday that prompted admission. Fortunately, his chest discomfort has resolved and he ruled out for myocardial necrosis by serial cardiac enzymes and has had no acute electrocardiographic changes observed on his present medical regimen that includes IV anticoagulation , statin, angiotensin receptor tonio, antiplatelet therapy, and beta tonio therapy. The plan at this juncture will be to continue him on cardiac medications and gradually increase his level of activity. If he remains stable he can be transferred to telemetry with continued IV heparin for an additional 24 hours. His other medications will be continued. If he becomes unstable with chest discomfort, electrocardiographic changes, etc. he will be transferred for emergent cardiac catheterization and percutaneous coronary intervention. If remains stable at the IV anticoagulation has been discontinued, he may be discharged to home for outpatient cardiac catheterization with an eye towards revascularization. Recommendations: * Transfer to telemetry this afternoon if he remains stable. * Continue IV heparin for a total of 48 hours and then discontinue, unless he has further chest discomfort. * Continue on the rest of his cardiac regimen (statin, antiplatelets, angiotensin receptor tonio, beta tonio, etc.). * Schedule for an echocardiogram and cancel order for previously scheduled outpatient echocardiogram. * DVT prophylaxis being addressed by the IV heparin for his unstable angina pectoris. Further recommendations will follow, Thank you. Consult Acknowledgment - Thank you for your consult request.
--- NOTE | 2016-11-24 12:57 | PN- Att Addend ---
Attending Addendum Attending Brief Note Patient seen and examined. Lying comfortably in bed not in any acute distress. No events overnight on monitoring. Denies chest pain. Denies shortness of breath or palpitations. Cardiac enzymes have been negative. Vital Signs Date Time Temp Pulse Resp B/P Pulse O2 O2 Flow FiO2 Ox Delivery Rate 11/24 1045 70 122/76 11/24 0800 97.1 76 20 102/70 97 Room Air 11/24 0800 96 Room Air 11/24 0400 95 Room Air 11/24 0010 97 Nasal 2.0L Cannula 11/24 0000 97.9 80 20 126/88 97 Nasal 2.0L Cannula 11/23 2318 97.4 71 16 132/80 98 Room Air 11/23 2318 78 18 132/50 98 Nasal 2.0L Cannula 11/23 2155 79 18 126/77 98 Nasal 2.0L Cannula 11/23 2111 102/71 11/23 2101 109/71 11/235 116/67 11/23 2014 118/76 11/23 2009 88 22 128/78 11/23 1950 85 Nasal 2.0L Cannula 11/23 1941 88 22 128/78 98 Room Air Gen. appearance: Well-developed, not in any distress Heart: S1-S2 regular Lungs: Good entry bilaterally, clear to auscultation Abdomen: Soft, nontender with normal bowel sounds Extremities: No pedal edema Skin: Intact with no rashes Laboratory Tests 11/24/16 1050: APTT 101 *H 11/24/16 0820: Phosphorus 4.2, Magnesium 1.9, Troponin I < 0.01 11/24/16 0630: Anion Gap 12, Estimated GFR > 60, BUN/Creatinine Ratio 24.4, Triglycerides 227 H, Cholesterol 113, LDL Cholesterol, Calc 21 L, HDL Cholesterol 47, Cholesterol /HDL Ratio 2, CBC w Diff NO MAN DIFF REQ, RBC 4.53 L, MCV 91.8, MCH 30.5, RDW 13.7, MPV 10.1, Gran % 48.5, Lymphocytes % 40.7, Monocytes % 7.6, Eosinophils % 2.3, Basophils % 0.9, Absolute Granulocytes 3.5, Absolute Lymphocytes 3.0, Absolute Monocytes 0.6, Absolute Eosinophils 0.2, Absolute Basophils 0.1, PUBS MCHC 33.2 11/24/16 0245: Troponin I < 0.01, TSH 2.520, Thyroxine (T4) 7.6, APTT 40 H 11/23/161939: Hemoglobin A1c Pending 11/23/161939: Anion Gap 16, Estimated GFR > 60, BUN/Creatinine Ratio 15.8, Glucose 130 H, Calcium 9.8, Total Bilirubin 0.5, Direct Bilirubin 0.4, AST 29, ALT 54, Alkaline Phosphatase 55, Troponin I < 0.01, Total Protein 7.6, Albumin 4.6, Amylase 62, Lipase 129, PT 11.0, INR 1.05, APTT 31, CBC w Diff NO MAN DIFF REQ, RBC 5.28, MCV 91.9, MCH 29.8, RDW 13.5, MPV 9.3, Gran % 58.7, Lymphocytes % 29.5, Monocytes % 8.1, Eosinophils % 1.5, Basophils % 2.2 H, Absolute Granulocytes 6.7 H, Absolute Lymphocytes 3.4, Absolute Monocytes 0.9 H, Absolute Eosinophils 0.2, Absolute Basophils 0.2, PUBS MCHC 32.4 L Microbiology 11/23 2358 UPPER RESP: Surveillance Culture - RECD 11/23 2313 GI: Surveillance Culture - COLB Problems: 1. Unstable angina 2. Insulin-dependent diabetes mellitus 3. Hypertension Plan: -Patient currently symptom-free. He has evidence of ongoing ischemia at present. -I agree with transfer patient to the telemetry service for further monitoring. -We will continue anticoagulation therapy and IV heparin for a total of 48 hours. Continue cardiac regimen of aspirin, Plavix, statin beta tonio and ARB. -Follow-up echocardiogram to rule out any new wall motion abnormalities. -Hold oral hypoglycemic medications while here in the hospital. Continue sliding scale coverage. Blood glucose levels are currently acceptable.
[2016-11-24 16:00] VITALS: BP 112/82
[2016-11-24 20:04] LABS: PTT 44 SEC (25-37)
[2016-11-25] VITALS: BP 110/70
[2016-11-25 02:27] LABS: ABSOLUTE BASOPHIL COUNT 0.1 /CUMM (0.0-0.2); ABSOLUTE EOSINOPHIL COUNT 0.2 /CUMM (0.0-0.7); ABSOLUTE GRANULOCYTE CT 5.2 /CUMM (1.4-6.5); ABSOLUTE LYMPH COUNT 2.8 /CUMM (1.2-3.4); ABSOLUTE MONOCYTE COUNT 0.6 /CUMM (0.10-0.60); BASOPHIL % 1.4 % (0.0-2.0); GRANULOCYTE % 58.3 % (42.2-75.2); HEMATOCRIT 39.9 % (42-52); MEAN CORPUSCULAR HGB 31.2 PG (27.0-31.0); MEAN CORPUSCULAR HGB CONC 34.5 G/DL (33.0-37.0); MEAN CORPUSCULAR VOLUME 90.5 FL (80.0-94.0); MEAN PLATELET VOLUME 9.8 FL (7.4-10.4); PLATELET COUNT 202 /CUMM (130-400); RBC DISTRIBUTION WIDTH 13.6 % (11.5-14.5); RED BLOOD CELL CT 4.41 /CUMM (4.70-6.10); WHITE BLOOD CELL COUNT 8.9 /CUMM (4.8-10.8)
[2016-11-25 03:13] LABS: PTT 70 SEC (25-37)
[2016-11-25 08:00] VITALS: BP 106/74
--- NOTE | 2016-11-25 08:36 | PN- Housestaff ---
Subjective Follow-up For: Unstable angina Subjective: No acute events overnight. Patient seen and examined this morning. He feels good and denies chest pain, palpitations or shortness of breath. Review of Systems Constitutional: Reports: no symptoms. Objective Last 24 Hrs of Vital Signs/I&O Vital Signs Date Time Temp Pulse Resp B/P Pulse O2 O2 Flow FiO2 Ox Delivery Rate 11/25 0905 68 132/78 11/25 0800 97.4 71 20 106/74 95 Room Air 11/25 0000 97.5 57 20 110/70 96 Room Air 11/24 2156 98.2 77 20 110/56 11/24 1600 98.0 73 20 112/82 94 Room Air Intake & Output 11/25 1600 11/25 0800 11/25 0000 Intake Total 454.4 590 Output Total 400 Balance 454.4 190 Intake, IV 214.4 290 Intake, Oral 240 300 Number 1 Bowel Movements Output, Urine 400 Physical Exam General Appearance: Alert, Oriented X3, No Acute Distress HEENT: Mucous Membr. moist/pink Neck: Supple Cardiovascular: Regular Rate, Normal S1, Normal S2, No Murmurs, Gallops, Rubs Lungs: Clear to Auscultation Abdomen: Soft, No Tenderness, Positive Bowel Sounds Extremities: No Clubbing, No Cyanosis, No Edema Current Medications: Current Medications Sig/Valerie Start time Last Medication Dose Route Stop Time Status Admin Acetaminophen 650 MG .STK-MED ONE 11/25 0219 DC PO 11/25 0220 Acetaminophen 650 MG Q6P PRN 11/23 2230 AC 11/25 PO 0905 Aspirin 81 MG DAILY 11/24 1000 AC 11/25 PO 0905 Atorvastatin Calcium 40 MG 1700 11/24 1700 AC 11/24 PO 1755 Clopidogrel Bisulfate 75 MG DAILY 11/24 1000 AC 11/25 PO 0905 Heparin Sodium 5,000 UNIT ONE ONE 11/24 2029 DC 11/24 (Porcine) IV 11/24 2030 215 Heparin Sodium 25,000 UNIT Q24H 11/23 1999 r 11/24 (Porcine) IV 11/25 Sodium Chloride 500 ML Insulin Aspart 0 TIDAC 11/24 0800 AC 11/25 SC 1148 Magnesium Oxide 400 MG ONE ONE 11/25 1130 DC PO 11/25 1131 Metoprolol Tartrate 12.5 MG BID 11/24 1000 AC 11/25 PO 0905 Nitroglycerin 0.5 GM Q6 11/24 0600 AC 11/25 TOP 0610 Nitroglycerin 0.4 MG Q 5 MINUTES X 3 DO.. 11/23 2229 AC SL Oxycodone/ 1 TAB Q6P PRN 11/23 2229 AC Acetaminophen PO Oxycodone/ 2 TAB Q6P PRN 11/23 2229 AC Acetaminophen PO Last 24 Hrs of Lab/Rojas Results Last 24 Hrs of Labs/Mics: Laboratory Tests 11/25/16 1405: APTT Pending 11/25/16 0200: Anion Gap 9, Estimated GFR > 60, BUN/Creatinine Ratio 17.8, Magnesium 1.8, APTT 70 H, CBC w Diff NO MAN DIFF REQ, RBC 4.41 L, MCV 90.5, MCH 31.2 H, RDW 13.6, MPV 9.8, Gran % 58.3, Lymphocytes % 31.7, Monocytes % 6.6, Eosinophils % 2.0, Basophils % 1.4, Absolute Granulocytes 5.2, Absolute Lymphocytes 2.8, Absolute Monocytes 0.6, Absolute Eosinophils 0.2, Absolute Basophils 0.1, PUBS MCHC 34.5 11/24/16 1900: APTT 44 H Orders ECHO Findings: Normal size left ventricle. Mild concentric left ventricular hypertrophy. Normal left ventricular wall motion. Normal left ventricular ejection fraction visually estimated at > 65%. Normal left ventricular diastolic filling pattern for age. Normal right ventricular size and function. Normal atrial size. Trace mitral regurgitation. Assessment/Plan Assessment: 56 y/o M smoker with PMHx of COPD, HTN and IDDM who presents with chest discomfort. #Unstable angina: Remains on IV heparin drip with no further episodes of chest pain. ECHO with LVEF > 65% and no wall motion abnormalities. * Cardiology following. Appreciate their recs. * Discontinue IV heparin drip this evening at 8 PM after a total of 48 hours unless patient has further chest discomfort. * Continue aspirin 81 mg PO daily, atorvastatin 40 mg PO QHS, metoprolol 12.5 mg PO BID, nitroglycerin paste and Plavix 75 mg PO daily. * Transfer to telemetry. * Tentative plan for discharge home tomorrow and elective cardiac cath on Saturday. #HTN: * Continue metoprolol 12.5 mg PO BID. * Resume prior to admission losartan 50 mg PO daily. #T2DM: Prior to admission medications were glyburide 5 mg PO BID, metformin 1000 mg PO BID and Januvia 100 mg PO daily. * Holding oral hypoglycemic agents while inpatient. * Accu-checks and sliding scale Novolog TIDAC. Diet: Heart Healthy DVT PPx: IV heparin and ALPs CODE: FULL Problem List: 1. Unstable angina 2. T2DM (type 2 diabetes mellitus) 3. HTN (hypertension) Pain Ratin Pain Location: N/A Pain Goal: Remain pain free Pain Plan: Tylenol 650 mg PO Q6H PRN for mild pain (scale 1-3) Percocet 1 tab PO Q6H PRN for moderate pain (scale 4-6) Percocet 2 tabs PO Q6H PRN for severe pain (scale 7-10) Tomorrow's Labs & Rationales: None Discharge Plan Discharge Disposition: home Anticipated Discharge (Day): tomorrow
[2016-11-25] MEDS ORDERED: ASPIRIN81 M4 PO (12:24)
--- NOTE | 2016-11-25 13:09 | PN- Att Addend ---
Attending Addendum Attending Brief Note Patient seen and examined. Resting comfortably and not in any acute distress. No issues overnight. He remains asymptomatic with no complaints of chest or shortness breath or palpitations. He remains afebrile and hemodynamically stable. Vital Signs Date Time Temp Pulse Resp B/P Pulse O2 O2 Flow FiO2 Ox Delivery Rate 11/25 0905 68 132/78 11/25 0800 97.4 71 20 106/74 95 Room Air 11/25 0000 97.5 57 20 110/70 96 Room Air 11/24 2156 98.2 77 20 110/56 11/24 1600 98.0 73 20 112/82 94 Room Air Gen. appearance: Well-developed, not in any distress Heart: S1-S2 regular Lungs: Clear bilaterally Abdomen: Soft, nontender Extremities: No pedal edema Laboratory Tests 11/25/16 0200: Anion Gap 9, Estimated GFR > 60, BUN/Creatinine Ratio 17.8, Magnesium 1.8, APTT 70 H, CBC w Diff NO MAN DIFF REQ, RBC 4.41 L, MCV 90.5, MCH 31.2 H, RDW 13.6, MPV 9.8, Gran % 58.3, Lymphocytes % 31.7, Monocytes % 6.6, Eosinophils % 2.0, Basophils % 1.4, Absolute Granulocytes 5.2, Absolute Lymphocytes 2.8, Absolute Monocytes 0.6, Absolute Eosinophils 0.2, Absolute Basophils 0.1, PUBS MCHC 34.5 11/24/16 1900: APTT 44 H 11/24/16 1400: Troponin I Cancelled Problems: 1. Unstable angina 2. Insulin-dependent diabetes mellitus 3. Hypertension Recommendations: -Complete 48 hours infusion of heparin. Continue other cardiac regimen. -Follow-up with the cardiology service regarding nonbleeding patient to the telemetry floor. -Blood glucose levels are acceptable. Continue sliding scale coverage. -Repeat lab studies tomorrow only if indicated.
--- NOTE | 2016-11-25 14:08 | ECHOCARDIOGRAM REPORT ---
ANTOINE FLOWERS Age: 56 : 1960 Gender: M Exam Date: 11/25/2016 09:09 Exam Location: [facility] Ht (in): 67 Wt (lb): 185 BSA: 2.01 BP: 110 / 70 Ordering Physician: REGINALDO CHEEK MD Referring Physician: Ravin Thompson MD Technologist: Amalia Jean Baptiste [facility] Room Number: [id number] Indications: CHEST PAIN Rhythm: Sinus Technical Quality: Fair FINDINGS Left Ventricle Normal size left ventricle. Mild concentric left ventricular hypertrophy. Normal left ventricular wall motion. Normal left ventricular ejection fraction visually estimated at >65%. Normal left ventricular diastolic filling pattern for age. Right Ventricle Normal right ventricular size and function. Right Atrium Normal right atrial size. Left Atrium Normal left atrial size. Mitral Valve Structurally normal mitral valve. Trace mitral regurgitation. Aortic Valve Structurally normal trileaflet aortic valve. No aortic valve stenosis or regurgitation. Tricuspid Valve Structurally normal tricuspid valve. No tricuspid regurgitation. Unable to estimate the right ventricular systolic pressure. Pulmonic Valve Pulmonic valve not well visualized, grossly normal. No pulmonic regurgitation. Pericardium No pericardial effusion. Great Vessels Normal size aortic root. Normal size inferior vena cava. CONCLUSIONS Normal size left ventricle. Mild concentric left ventricular hypertrophy. Normal left ventricular wall motion. Normal left ventricular ejection fraction visually estimated at > 65%. Normal left ventricular diastolic filling pattern for age. Normal right ventricular size and function. Normal atrial size. Trace mitral regurgitation. Ravin Thompson M.D. (Electronically Signed) Final Date: 25 November 2016 14:07 MEASUREMENTS (Male / Female) Normal Values 2D ECHO LV Diastolic Diameter PLAX 4.1 cm 4.2 - 5.9 / 3.9 - 5.3 cm LV Systolic Diameter PLAX 2.5 cm 2.1 - 4.0 cm LV Fractional Shortening PLAX 39.0 % 25 - 46 % LV Ejection Fraction 2D Teich 69.9 % IVS Diastolic Thickness 1.2 cm LVPW Diastolic Thickness 1.2 cm LV Relative Wall Thickness 0.6 RV Internal Dim ED PLAX 2.4 cm 1.9 - 3.8 cm LVOT Diameter 1.9 cm Aortic Root Diameter 2.7 cm LA Systolic Diameter LX 3.4 cm 3.0 - 4.0 / 2.7 - 3.8 cm LA Volume 35.0 cm 18 - 58 / 22 - 52 cm Ascending Aorta Diameter 2.8 cm DOPPLER AV Peak Velocity 138.0 cm/s AV Peak Gradient 7.6 mmHg AV Mean Velocity 91.7 cm/s AV Mean Gradient 4.0 mmHg AV Velocity Time Integral 25.9 cm LVOT Peak Velocity 102.0 cm/s LVOT Peak Gradient 4.2 mmHg LVOT Mean Velocity 71.9 cm/s LVOT Mean Gradient 2.0 mmHg LVOT Velocity Time Integral 20.4 cm LVOT Stroke Volume 57.8 cm AV Area Cont Eq vti 2.2 cm AV Area Cont Eq pk 2.1 cm MV Peak Velocity 108.0 cm/s MV Peak Gradient 4.7 mmHg MV Mean Velocity 66.9 cm/s MV Mean Gradient 2.0 mmHg Mitral E Point Velocity 91.0 cm/s Mitral A Point Velocity 67.1 cm/s Mitral E to A Ratio 1.4 MV PHT Velocity 112.0 cm/s MV Deceleration [place] 630.0 cm/s MV Pressure Half Time 53.3 ms MV Area PHT 4.1 cm MV Deceleration Time 185.0 ms PV Peak Velocity 92.0 cm/s PV Peak Gradient 3.4 mmHg PV Mean Velocity 67.1 cm/s PV Mean Gradient 2.0 mmHg PV Velocity Time Integral 21.5 cm LV E' Lateral Velocity 14.1 cm/s Mitral E to LV E' Lateral Ratio 6.5 LV E' Septal Velocity 10.4 cm/s Mitral E to LV E' Septal Ratio 8.8
[2016-11-25] MEDS ORDERED: ATORVASTATIN CA40 M1 PO (14:52)
[2016-11-25] MEDS ORDERED: PLAVIX75 M1 PO (14:53)
[2016-11-25] MEDS ORDERED: METOPROLOL TART25 M1 PO (14:56)
[2016-11-25] MEDS ORDERED: NITROGLYCERIN0.4 M1 SL ×2 (15:15→15:32)
--- NOTE | 2016-11-25 15:20 | Discharge Summary ---
Visit Information Visit Dates Admission Date: 11/23/16 Discharge Date: 11/26/2015 Hospital Course Course Attending Physician: MAYUR PENA M.D Primary Care Physician: PRISCILLA AGUIRRE DO Hospital Course: 56-year-old man, with a past medical history of hypertension, non-insulin dependent diabetes, hyperlipidemia, GERD, presents to the ED with a complaint of chest pain, 4/10, substernal, slight radiation to the left shoulder, did not resolve with sublingual nitroglycerin but eventually resolved with IV morphine. He has intermittent, initially 7/10, pressure like, as if somebody is sitting on his chest, initially only substernal but then started radiating to the left shoulder, not related to exertion, and present even at rest. He had a stress test with Dr. Thompson on DOA during which he became diaphoretic, developed chest pressure, with ST depressions noted. He was admitted to ICU for unstable angina and received IV heparin for 48 hours. Meds changed as below: statin dose increased, aspirin, plavix, BB, nitroglycerin started. Instructed to not take nitroglycerin while he is alone or while driving as his BP might drop, and instructed him to present to ED if he has chest pain requiring him to take nitroglycerin. Pt discharged home and will get elective cardiac cath, tentatively this Saturday. Dr. Thompson's office will contact him with the details Allergies: Coded Allergies: No Known Allergies (11/23/16) Significant Procedures: JOSEMARZENA ANTOINE Age: 56 : 1960 Gender: M Exam Date: 11/25/2016 09:09 Exam Location: [facility] Ht (in): 67 Wt (lb): 185 BSA: 2.01 BP: 110 / 70 Ordering Physician: REGINALDO CHEEK MD Referring Physician: Tyshawn Thompson MD Technologist: Amalia Jean Baptiste RDCS Room Number: [id number] Indications: CHEST PAIN Rhythm: Sinus Technical Quality: Fair FINDINGS Left Ventricle Normal size left ventricle. Mild concentric left ventricular hypertrophy. Normal left ventricular wall motion. Normal left ventricular ejection fraction visually estimated at >65%. Normal left ventricular diastolic filling pattern for age. Right Ventricle Normal right ventricular size and function. Right Atrium Normal right atrial size. Left Atrium Normal left atrial size. Mitral Valve Structurally normal mitral valve. Trace mitral regurgitation. Aortic Valve Structurally normal trileaflet aortic valve. No aortic valve stenosis or regurgitation. Tricuspid Valve Structurally normal tricuspid valve. No tricuspid regurgitation. Unable to estimate the right ventricular systolic pressure. Pulmonic Valve Pulmonic valve not well visualized, grossly normal. No pulmonic regurgitation. Pericardium No pericardial effusion. Great Vessels Normal size aortic root. Normal size inferior vena cava. CONCLUSIONS Normal size left ventricle. Mild concentric left ventricular hypertrophy. Normal left ventricular wall motion. Normal left ventricular ejection fraction visually estimated at > 65%. Normal left ventricular diastolic filling pattern for age. Normal right ventricular size and function. Normal atrial size. Trace mitral regurgitation. Tyshawn Thompson M.D. (Electronically Signed) Final Date: 25 November 2016 14:07 EXAM TYPE: CAT - CTA CHEST-PULMONARY EMBOLISM EXAMINATION: CT ANGIOGRAM OF THE CHEST WITH AND WITHOUT CONTRAST (CT PULMONARY ANGIOGRAM FOR PE) CLINICAL INFORMATION: 56-year-old male patient with chest pain. COMPARISON: Chest x-ray done earlier this evening. CT of the chest done on 11/09/2011. (Emphysema). TECHNIQUE: Prior to contrast administration, noncontrast localization images were obtained. Subsequently, multidetector volumetric imaging was performed from the thoracic inlet to below the diaphragms following the administration of 80 mL Optiray 350 intravenous contrast. No contrast reaction reported Sagittal, coronal, and MIP oblique sagittal reformatted images were obtained on the CT workstation, uploaded to PACS, and reviewed. Total exam dose-length product 518 mGy-cm FINDINGS: The final expense agent is unrevealing. QUALITY OF STUDY/CONTRAST BOLUS: Excellent. PULMONARY ARTERIES: No central or segmental pulmonary emboli. THORACIC AORTA: No aneurysm or dissection. LUNG: No focal consolidation, nodules or masses. PLEURA: No pleural effusion or pneumothorax. MEDIASTINUM: Normal heart size. No pericardial effusion. No significant hilar or mediastinal lymphadenopathy. Subcentimeter lymph nodes are present in the AP window. No evidence of septal bowing or right heart strain. CHEST WALL/AXILLA: No axillary or internal mammary lymphadenopathy. OSSEOUS STRUCTURES: No acute or suspicious osseous abnormality. UPPER ABDOMEN: The liver is diffusely infiltrated by fat. Focal area of fatty sparing is seen in the gallbladder fossa. The stomach is considerably distended by a recently ingested food. A small accessory spleen is evident. No reflux of contrast into the hepatic veins to suggest elevated right heart pressures. IMPRESSION: No evidence of pulmonary emboli. No acute lung disease. Fatty liver. Normal thoracic aorta. VTE: negative EXAM TYPE: RAD - XRY-PORTABLE CHEST XRAY EXAMINATION: XR PORTABLE CHEST CLINICAL INFORMATION: Chest pain COMPARISON: 10/29/2013 TECHNIQUE: Portable AP view of the chest was obtained. FINDINGS: The cardiomediastinal silhouette is normal. The lungs are clear. No consolidation, pulmonary edema, pleural effusion, or pneumothorax. Lung volumes are lower than on the prior study. No acute osseous abnormalities. IMPRESSION: Low lung volumes without acute abnormality. DICTATED BY: COLT RAINES MD DATE/TIME DICTATED:11/23/162122 Disposition Summary Disposition Principal Diagnosis: Unstable angina Additional Diagnosis: Diabetes mellitus Discharge Disposition: home or self care Discharge Instructions General Discharge Information Code Status: Full Code Patient's Diet: Heart healthy Patient's Activity: As tolerated Follow-Up Instructions/Appts: You were seen/treated for: Unstable angina Watch for these problems: Chest pain that is increasing in severity, happening more frequently or lasting longer Difficulty breathing Nausea or vomiting Sudden loss of feeling in your face, arms or legs Lightheadedness or sudden cold sweat Special Instructions: - Please follow up with your primary care physician Dr. Aguirre and executive business coach Dr. Thompson within one week of discharge. - Please follow up for your cardiac catherization as per Dr. Thompson's instruction. Medications at Discharge Discharge Medications: Stop taking the following medications: Amlodipine Besylate (Amlodipine Besylate) 2.5 MG TABLET ORAL DAILY Qty = 30 Atorvastatin Calcium (Atorvastatin Calcium) 20 MG TABLET ORAL DAILY Qty = 30 Continue taking these medications: Sitagliptin Phosphate (Januvia) 100 MG TABLET 1 Tablet ORAL DAILY Qty = 30 Instructions: Reason to Stop at ADM: ISS Comments: NOT GIVEN THIS ADMISSION Losartan Potassium (Losartan Potassium) 50 MG TABLET 1 Tablet ORAL DAILY Qty = 30 Instructions: Reason to Stop at ADM: STARTING BETA MELISSA AND NITRO, ALREADY BORDERLINE LOW BP Comments: Last Taken:11/26/16 Time:9:12A.M Glyburide/Metformin HCl (Glyburide-Metformin 2.5-500 MG) 2.5 MG-500 MG TABLET 2 Tablet ORAL TWICE DAILY Qty = 120 Instructions: Reason to Stop at ADM: ON ISS Comments: NOT GIVEN THIS ADMISSION Ibuprofen (Advil) 200 MG CAPSULE 2 Tablet ORAL as needed for PAIN Comments: NOT GIVEN THIS ADMISSION Start taking the following new medications: Nitroglycerin (Nitroglycerin) 0.4 MG TAB.SUBL 1 Tablet SUBLINGUAL As Directed as needed for for CHEST PAIN Qty = 25 No Refills Instructions: 1st sign of attack; may repeat every 5 minutes until relief; if pain persists after 3 tablets in 15 minutes, prompt medical att Comments: Last Taken: NOT GIVEN THIS ADMISSION Time: Aspirin (Aspirin*) 81 MG TAB.CHEW 81 Milligram ORAL DAILY Days = 28 No Refills Comments: Last Taken:11/26/16 Time:9:12A.M Atorvastatin Calcium (Atorvastatin Calcium) 40 MG TABLET 1 Tablet ORAL DAILY Qty = 30 No Refills Comments: Last Taken:11/25/16 Time: 4:27P.M Clopidogrel Bisulfate (Plavix) 75 MG TABLET 1 Tablet ORAL DAILY Qty = 30 No Refills Comments: Last Taken:11/26/16 Time:9:12A.M Metoprolol Tartrate (Metoprolol Tartrate) 25 MG TABLET 0.5 Tablet ORAL TWICE DAILY Qty = 30 No Refills Comments: Last Taken:11/26/16 Time:9:12A.M Copies To: HINA ALVAREZ,TYSHAWN Julian; PRISCILLA AGUIRRE DO Attending MD Review Statement Documenting Attending: MAYUR PENA M.D Other Findings: patient is medically stable to be discharged and will follow-up with his cardiology service as an outpatient
--- NOTE | 2016-11-25 15:21 | Patient Discharge Instructions ---
Discharge Instructions General Discharge Information You were seen/treated for: Unstable angina Watch for these problems: Chest pain that is increasing in severity, happening more frequently or lasting longer Difficulty breathing Nausea or vomiting Sudden loss of feeling in your face, arms or legs Lightheadedness or sudden cold sweat Special Instructions: - Please follow up with your primary care physician Dr. Aguirre and celebrity chef entrepreneur media personality Dr. Thompson within one week of discharge. - Please follow up for your cardiac catherization as per Dr. Thompson's instruction. Diet Recommended Diet: Heart Healthy Activity Full Activity/No Limits: Yes Acute Coronary Syndrome Inclusion Criteria At DC or during hospital stay patient has or had the following: ACS DIAGNOSIS No Discharge Core Measures Meds if any: Prescribed or Continued at Discharge SHAD/ARB if EF <40% Yes Aspirin Yes Beta-Vinnie Yes Statin Yes Meds if any: NOT Prescribed or Continued at Discharge Comment LVEF > 65% Congestive Heart Failure Inclusion Criteria At DC or during hospital stay patient has or had the following: CHF DIAGNOSIS No Discharge Core Measures Meds if any: Prescribed or Continued at Discharge Meds if any: NOT Prescribed or Continued at Discharge Cerebrovascular accident Inclusion Criteria At DC or during hospital stay patient has or had the following: CVA/TIA Diagnosis No Discharge Core Measures Meds if any: Prescribed or Continued at Discharge Meds if any: NOT Prescribed or Continued at Discharge Venous thromboembolism Inclusion Criteria VTE Diagnosis No VTE Type NONE VTE Confirmed by (Test) NONE Discharge Core Measures - Per Current guidelines, there needs to be overlap - treatment for the first 5 days of Warfarin therapy. - If discharged on Warfarin prior to 5 days of - overlap therapy, the patient will need to be - assessed for post discharge needs including - *Post discharge parental anticoagulation - *Warfarin and/or parental anticoagulation education - *Follow up date to check INR post discharge At least 5 days overlap therapy as Inpatient No Meds if any: Prescribed or Continued at Discharge Note: Overlap Therapy is Warfarin and Anticoagulant Meds if any: NOT Prescribed or Continued at Discharge
[2016-11-25 15:56] LABS: PTT 35 SEC (25-37)
[2016-11-25 16:00] VITALS: BP 112/74
--- NOTE | 2016-11-25 16:45 | PN- Cardiology ---
Subjective Subjective: No complaints and remains on IV heparin which will be discontinued this evening. Denies any chest discomfort, palpitations, shortness of breath, etc. Objective Vital Signs and I&Os Vital Signs Date Time Temp Pulse Resp B/P Pulse O2 O2 Flow FiO2 Ox Delivery Rate 11/25 1600 98.2 71 20 112/74 95 Room Air 11/25 0905 68 132/78 11/25 0800 97.4 71 20 106/74 95 Room Air 11/25 0000 97.5 57 20 110/70 96 Room Air 11/24 2156 98.2 77 20 110/56 Intake & Output 11/25 1600 11/25 0800 11/25 0000 11/24 1600 11/24 0800 11/24 0000 Intake Total 965 454.4 590 645 580 Output Total 400 600 Balance 965 454.4 190 645 -20 Intake, IV 215 214.4 290 165 180 Intake, Oral 750 240 300 480 400 Number 1 1 Bowel Movements Output, Urine 400 600 Patient 185 lb 184 lb Weight Physical Exam: Well-developed, well-nourished middle-aged male in no acute distress. Vital signs: See above. Lungs: Clear to auscultation bilaterally. Heart: S1, S2 with no murmur, gallop, or rub appreciated. Extremities: No edema. Current Medications: Current Medications Sig/Valerie Start time Last Medication Dose Route Stop Time Status Admin Acetaminophen 650 MG .STK-MED ONE 11/25 0219 DC PO 11/25 0220 Acetaminophen 650 MG Q6P PRN 11/23 2230 AC 11/25 PO 0905 Aspirin 81 MG DAILY 11/24 1000 AC 11/25 PO 0905 Atorvastatin Calcium 40 MG 1700 11/24 1700 AC 11/25 PO 1627 Clopidogrel Bisulfate 75 MG DAILY 11/24 1000 AC 11/25 PO 0905 Heparin Sodium 5,000 UNIT ONE ONE 11/24 2029 DC 11/24 (Porcine) IV 11/24 2030 2152 Heparin Sodium 25,000 UNIT Q24H 11/23 1999 AC 11/25 (Porcine) IV 11/25 1999 162 Sodium Chloride 500 ML Insulin Aspart 0 TIDAC 11/24 0800 AC 11/25 SC 1628 Losartan Potassium 50 MG DAILY 11/25 1605 AC PO Magnesium Oxide 400 MG ONE ONE 11/25 1130 DC 11/25 PO 11/25 1131 1526 Metoprolol Tartrate 12.5 MG BID 11/24 1000 AC 11/25 PO 0905 Nitroglycerin 0.5 GM Q6 11/24 0600 AC 11/25 TOP 0610 Nitroglycerin 0.4 MG Q 5 MINUTES X 3 DO.. 11/23 2229 AC SL Oxycodone/ 1 TAB Q6P PRN 11/23 2229 AC Acetaminophen PO Oxycodone/ 2 TAB Q6P PRN 11/23 2229 AC Acetaminophen PO Patient Medication 1 UNIT ONE NR 11/25 1615 OK Teaching ED 11/25 1630 Results Last 48 Hrs of Labs/Mics: Laboratory Tests 11/25/16 1405: APTT 35 11/25/16 0200: Anion Gap 9, Estimated GFR > 60, BUN/Creatinine Ratio 17.8, Magnesium 1.8, APTT 70 H, CBC w Diff NO MAN DIFF REQ, RBC 4.41 L, MCV 90.5, MCH 31.2 H, RDW 13.6, MPV 9.8, Gran % 58.3, Lymphocytes % 31.7, Monocytes % 6.6, Eosinophils % 2.0, Basophils % 1.4, Absolute Granulocytes 5.2, Absolute Lymphocytes 2.8, Absolute Monocytes 0.6, Absolute Eosinophils 0.2, Absolute Basophils 0.1, PUBS MCHC 34.5 11/24/16 1900: APTT 44 H 11/24/16 1400: Troponin I Cancelled 11/24/16 1050: APTT 101 *H 11/24/16 0820: Phosphorus 4.2, Magnesium 1.9, Troponin I < 0.01 11/24/16 0630: Anion Gap 12, Estimated GFR > 60, BUN/Creatinine Ratio 24.4, Triglycerides 227 H, Cholesterol 113, LDL Cholesterol, Calc 21 L, HDL Cholesterol 47, Cholesterol /HDL Ratio 2, CBC w Diff NO MAN DIFF REQ, RBC 4.53 L, MCV 91.8, MCH 30.5, RDW 13.7, MPV 10.1, Gran % 48.5, Lymphocytes % 40.7, Monocytes % 7.6, Eosinophils % 2.3, Basophils % 0.9, Absolute Granulocytes 3.5, Absolute Lymphocytes 3.0, Absolute Monocytes 0.6, Absolute Eosinophils 0.2, Absolute Basophils 0.1, PUBS MCHC 33.2 11/24/16 0245: Troponin I < 0.01, TSH 2.520, Thyroxine (T4) 7.6, APTT 40 H 11/23/161939: Hemoglobin A1c 7.0 H 11/23/161939: Anion Gap 16, Estimated GFR > 60, BUN/Creatinine Ratio 15.8, Glucose 130 H, Calcium 9.8, Total Bilirubin 0.5, Direct Bilirubin 0.4, AST 29, ALT 54, Alkaline Phosphatase 55, Troponin I < 0.01, Total Protein 7.6, Albumin 4.6, Amylase 62, Lipase 129, PT 11.0, INR 1.05, APTT 31, CBC w Diff NO MAN DIFF REQ, RBC 5.28, MCV 91.9, MCH 29.8, RDW 13.5, MPV 9.3, Gran % 58.7, Lymphocytes % 29.5, Monocytes % 8.1, Eosinophils % 1.5, Basophils % 2.2 H, Absolute Granulocytes 6.7 H, Absolute Lymphocytes 3.4, Absolute Monocytes 0.9 H, Absolute Eosinophils 0.2, Absolute Basophils 0.2, PUBS MCHC 32.4 L Microbiology 11/23 2358 UPPER RESP: Surveillance Culture - COMP Recent Imaging Studies: Echocardiogram (11/25/2016): Normal size left ventricle. Mild concentric left ventricular hypertrophy. Normal left ventricular wall motion. Normal left ventricular ejection fraction visually estimated at > 65%. Normal left ventricular diastolic filling pattern for age. Normal right ventricular size and function. Normal atrial size. Trace mitral regurgitation. Assessment/Plan Assessment/Plan Mr. Dawn is a middle-aged male with a long-standing history of tobacco use discontinued 2 years ago, chronic obstructive pulmonary disease, hypertension, dyslipidemia, diabetes mellitus, and gastroesophageal reflux disease who began experiencing episodes of chest discomfort approximately 1-1/2 weeks ago with some typical and atypical features, and who had clinical, electrocardiographic, and nuclear evidence of ischemia on treadmill stress testing performed 11/23/2016 that prompted admission. His chest discomfort resolved and he ruled out for myocardial necrosis by serial cardiac enzymes and has had no acute electrocardiographic changes observed on his present medical regimen that includes IV anticoagulation, statin, angiotensin receptor tonio, antiplatelet therapy, and beta tonio therapy. If remains stable after the IV anticoagulation has been discontinued, he may be discharged to home for outpatient cardiac catheterization with an eye towards revascularization. Recommendations: * Transfer to telemetry. * Continue IV heparin for a total of 48 hours and then discontinue, unless he has further chest discomfort. * Continue on the rest of his cardiac regimen (statin, antiplatelets, angiotensin receptor tonio, beta tonio, etc.). * DVT prophylaxis being addressed by the IV heparin for his unstable angina pectoris. Continue telemetry? Yes
[2016-11-25 18:53] VITALS: BP 132/78
[2016-11-25 23:00] VITALS: BP 118/74
--- NOTE | 2016-11-26 06:36 | PN- Housestaff ---
See Addendum Subjective Follow-up For: unstable angina Tele-Events Since Last Visit: Sb-sr 55-73 1st degree heart block Subjective: pt was lying comfortably in bed when seen today, no overnight events. denies chest discomfort/pain after heparin has been discontinued at 8pm last night. he feels well to go home. Review of Systems Constitutional: Denies: chills, fever. Cardiovascular: Denies: chest pain, palpitations. Respiratory: Denies: cough, short of breath. Gastrointestinal: Denies: abdominal pain. Objective Last 24 Hrs of Vital Signs/I&O Vital Signs Date Time Temp Pulse Resp B/P Pulse O2 O2 Flow FiO2 Ox Delivery Rate 11/25 2300 98.2 71 18 118/74 97 Room Air 11/25 2200 61 130/78 11/25 2126 71 118/74 11/25 1853 98.4 68 16 132/78 97 Room Air 11/25 1600 98.2 71 20 112/74 95 Room Air 11/25 0905 68 132/78 Intake & Output 11/26 1600 11/26 0800 11/26 0000 Intake Total 300 500 Output Total Balance 300 500 Intake, Oral 300 500 Physical Exam General Appearance: Alert, Oriented X3, Cooperative, No Acute Distress Skin: No Significant Lesion HEENT: Atraumatic Cardiovascular: difficult to assess heart sounds Lungs: Clear to Auscultation, Normal Air Movement Abdomen: Normal Bowel Sounds, Soft, No Tenderness Neurological: Normal Speech Extremities: No Edema Current Medications: Current Medications Sig/Valerie Start time Last Medication Dose Route Stop Time Status Admin Acetaminophen 650 MG .STK-MED ONE 11/25 0901 DC PO 11/25 0902 Acetaminophen 650 MG Q6P PRN 11/23 2230 AC 11/25 PO 0905 Aspirin 81 MG DAILY 11/24 1000 AC 11/25 PO 0905 Atorvastatin Calcium 40 MG 1700 11/24 1700 AC 11/25 PO 1627 Clopidogrel Bisulfate 75 MG DAILY 11/24 1000 AC 11/25 PO 0905 Heparin Sodium 5,000 UNIT ONE ONE 11/25 1615 DC 11/25 (Porcine) IV 11/25 161 1615 Heparin Sodium 25,000 UNIT Q24H 11/23 1999 DC 11/25 (Porcine) IV 11/25 1999 162 Sodium Chloride 500 ML Insulin Aspart 0 TIDAC 11/24 0800 AC 11/25 SC 1628 Losartan Potassium 50 MG DAILY 11/25 1605 AC 11/25 PO 2200 Magnesium Oxide 400 MG ONE ONE 11/25 1130 DC 11/25 PO 11/25 1131 1526 Metoprolol Tartrate 12.5 MG BID 11/24 1000 AC 11/25 PO 2126 Nitroglycerin 0.5 GM Q6 11/24 0600 AC 11/25 TOP 0610 Nitroglycerin 0.4 MG Q 5 MINUTES X 3 DO.. 11/23 2230 AC SL Oxycodone/ 1 TAB Q6P PRN 11/23 2230 AC Acetaminophen PO Oxycodone/ 2 TAB Q6P PRN 11/23 2230 AC Acetaminophen PO Patient Medication 1 UNIT ONE NR 11/25 1615 DC Teaching ED 11/25 1630 Last 24 Hrs of Lab/Rojas Results Last 24 Hrs of Labs/Mics: Laboratory Tests 11/25/16 1405: APTT 35 Assessment/Plan Assessment: 56 y/o M smoker with PMHx of COPD, HTN and IDDM who presents with chest discomfort. #Unstable angina: Remains on IV heparin drip with no further episodes of chest pain. ECHO with LVEF > 65% and no wall motion abnormalities. * Cardiology following. Appreciate their recs. * IV heparin discontinued after 48 hours. * Continue aspirin 81 mg PO daily, atorvastatin 40 mg PO QHS, metoprolol 12.5 mg PO BID, nitroglycerin paste and Plavix 75 mg PO daily, losartan daily. * Anticipated discharge today * Elective cardiac cath on Saturday. #HTN: * Continue metoprolol 12.5 mg PO BID. * Resume prior to admission losartan 50 mg PO daily. #T2DM: Prior to admission medications were glyburide 5 mg PO BID, metformin 1000 mg PO BID and Januvia 100 mg PO daily. * Holding oral hypoglycemic agents while inpatient. * Accu-checks and sliding scale Novolog TIDAC. Diet: Heart Healthy DVT PPx: ALPs CODE: FULL Problem List: 1. Unstable angina Pain Ratin Pain Location: none Pain Goal: Remain pain free Pain Plan: none Tomorrow's Labs & Rationales: none DVT/Prophylaxis: mechanical
[2016-11-26 08:00] VITALS: BP 100/70
[2016-11-26 09:13] VITALS: BP 102/62
== END 2016-11-26 10:30 | DRG 311 ==
LOC: ENRESERVDT → ENRESERVTM → ERH 19:24 → ENPENDDIS 20:50 → ERHI 20:50 → 1NO 20:50 → CRI 23:39 → 1NO 11-25 17:54
PROVIDERS: Internal Medicine; Internal Medicine Interventional Cardiology; Internal Medicine Nephrology; Pediatrics; Student in an Organized Health Care Education/Training Program; ADMIT Student in an Organized Health Care Education/Training Program
DX: I20.0 Unstable angina (principal); I10 Essential (primary) hypertension; E11.9 Type 2 diabetes mellitus without complications; Z79.84 Long term (current) use of oral hypoglycemic drugs; E78.5 Hyperlipidemia, unspecified; K21.9 Gastro-esophageal reflux disease without esophagitis; Z87.891 Personal history of nicotine dependence; J44.9 Chronic obstructive pulmonary disease, unspecified
CPT/HCPCS: 1NP; CCU; 36415; 82436; 93005; 93010; 93306; 96374; 96375; 99291; J1644; J3490

== ENCOUNTER 2017-01-20 20:28 | Observation (INO) | payer OTHER ==
[~2017-01-20] VITALS: Ht 172.7 cm; Wt 83.5 kg
[~2017-01-20 20:28] MED LIST: ADVIL200 M1 PO; AMLODIPINE BES2.5 M1 PO; ASPIRIN81 M4 PO; ATORVASTATIN CA20 M1 PO; ATORVASTATIN CA40 M1 PO; GLYBURIDE-METF1 EAC1 PO; JANUVIA100 M1 PO; LOSARTAN POTASS50 M1 PO; METOPROLOL TART25 M1 PO; NITROGLYCERIN0.4 M1 SL; PLAVIX75 M1 PO
--- NOTE | 2017-01-20 20:45 | NUR ---
Informed waiting has been performed.
--- NOTE | 2017-01-20 20:45 | NUR ---
TRIAGE: PT TO ER WITH C/C MID CHEST PAIN, ONSET 18:00, CONSTANT SINCE ONSET. 03/09. DESCRIBES "HEAVINESS, LIKE A VICE OR SOMEONE SITTING ON THE CHEST". TOOK 2 SL NITROGLYCERIN TABLETS WITH NO RELIEF. HAS HX OF CAD, ANGINA AND "FAILED STRESS TEST". STATES USUALLY THE NITROGLYCERIN HELP BUT DID NOT TONIGHT. STATES PAIN TONIGHT WAS "A LITTLE DIFFERENT" BECAUSE HE STARTED SWEATING WITH ONSET OF PAIN AND WAS LONGER LASTING. NORMALLY DOES NOT HAVE DIFFICULTY BREATHING BUT TONIGHT HAD DIFFICULTY BREATHING WHICH HAS BEEN IMPROVING SINCE ONSET. PT HAD EKG DONE IN [place]. DR CONNER EVALUATED PATIENT IN TRIAGE.
--- NOTE | 2017-01-20 21:04 | ED CARDIAC/CP/PALPITATIONS ---
History of Present Illness General Chief Complaint: Chest Pain Stated Complaint: CHEST PAIN AND DIFFICULTY BREATHING Source: patient, family Exam Limitations: no limitations Vital Signs & Intake/Output Vital Signs & Intake/Output Vital Signs Date Time Temp Pulse Resp B/P B/P Pulse O2 O2 Flow FiO2 Mean Ox Delivery Rate 01/21 0001 96.6 59 16 105/65 98 Room Air 01/20 2235 97.9 67 18 120/68 97 Room Air 01/208 Room Air 01/20 2115 71 112/78 01/20 2040 97.3 71 20 120/80 95 Room Air ED Intake and Output 01/21 0000 01/20 1200 Intake Total Output Total Balance Patient 184 lb Weight Weight Reported by Patient Measurement Method Allergies Coded Allergies: No Known Allergies (01/20/17) Reconcile Medications Amlodipine (Norvasc) 2.5 MG TABLET 1 TAB PO DAILY HTN (Reported) Aspirin (Aspirin*) 81 MG TAB.CHEW 81 MG PO DAILY for heart health Atorvastatin Calcium 40 MG TABLET 1 TAB PO DAILY HEART HEALTH Clopidogrel Bisulfate (Plavix) 75 MG TABLET 1 TAB PO DAILY BLOOD THINNER Glyburide/Metformin HCl (Glyburide-Metformin 2.5-500 MG) 2.5 MG-500 MG TABLET 1 TAB PO BID DM (Reported) Reason to Stop at ADM: ON ISS Losartan Potassium 50 MG TABLET 0.5 TAB PO DAILY BP (Reported) Reason to Stop at ADM: STARTING BETA MELISSA AND NITRO, ALREADY BORDERLINE LOW BP Metoprolol Tartrate 25 MG TABLET 1.5 TAB PO BID HEART HEALTH Nitroglycerin 0.4 MG TAB.SUBL 1 TAB SL AD PRN for CHEST PAIN 1st sign of attack; may repeat every 5 minutes until relief; if pain persists after 3 tablets in 15 minutes, prompt medical att Sitagliptin Phosphate (Januvia) 100 MG TABLET 1 TAB PO DAILY DM (Reported) Reason to Stop at ADM: ISS Triage Note: TRIAGE: PT TO ER WITH C/C MID CHEST PAIN, ONSET 18:00, CONSTANT SINCE ONSET. 03/09. DESCRIBES "HEAVINESS, LIKE A VICE OR SOMEONE SITTING ON THE CHEST". TOOK 2 SL NITROGLYCERIN TABLETS WITH NO RELIEF. HAS HX OF CAD, ANGINA AND "FAILED STRESS TEST". STATES USUALLY THE NITROGLYCERIN HELP BUT DID NOT TONIGHT. STATES PAIN TONIGHT WAS "A LITTLE DIFFERENT" BECAUSE HE STARTED SWEATING WITH ONSET OF PAIN AND WAS LONGER LASTING. NORMALLY DOES NOT HAVE DIFFICULTY BREATHING BUT TONIGHT HAD DIFFICULTY BREATHING WHICH HAS BEEN IMPROVING SINCE ONSET. PT HAD EKG DONE IN [place]. DR CONNER EVALUATED PATIENT IN TRIAGE. Triage Nurses Notes Reviewed? yes Onset: Gradual Duration: hour(s):, waxing and waning Timing: recent history Quality/Severity: moderate Location: central Radiation: no radiation Activities at Onset: none Prior Chest Pain/Card Workup: cardiac cath Modifying Factors: Improves With: rest. Nitro Today/Relief: 0.4 mg x 2, no relief Associated Symptoms: left upper chest wall pain HPI: 56 yo gentleman, history of known coronary artery disease, prior cath, "but they couldn't put a stent in," presents with several hours of 6-7/10 sub sternal chest pressure, non radiating. "I took 2 nitros but it didn't make a difference." "This feels simliar to other times." He notes no radiation, diaphoresis, syncopal symptoms. He is otherwise well. Past History Travel History Traveled to [place] past 21 day No Medical History Any Pertinent Medical History? see below for history Neurological: NONE EENT: NONE Cardiovascular: angina, CAD, hypertension, hyperlipidemia Respiratory: NONE Gastrointestinal: GERD Hepatic: NONE Renal: NONE Musculoskeletal: chronic back pain Psychiatric: NONE Endocrine: diabetes Blood Disorders: NONE Cancer(s): NONE COMMODITY DIRECTOR/Reproductive: NONE History of MRSA: No History of VRE: No History of CDIFF: No Surgical History Surgical History: appendectomy, left knee ACL repair Psychosocial History Who do you live with Spouse Services at Home None What is your primary language Bengali Tobacco Use: Quit >30 days ago ETOH Use: occasional use Illicit Drug Use: denies illicit drug use Family History Family History, If Any: FATHER (Cancer (unknown which kind)). grand father (Heart Attack at 70 years of age). Hx Contributory? No Review of Systems Review of Systems Constitutional: Reports: no symptoms. EENTM: Reports: no symptoms. Respiratory: Reports: no symptoms. Cardiovascular: Reports: no symptoms. GI: Reports: no symptoms. Genitourinary: Reports: no symptoms. Musculoskeletal: Reports: no symptoms. Skin: Reports: no symptoms. Neurological/Psychological: Reports: no symptoms. Hematologic/Endocrine: Reports: no symptoms. Immunologic/Allergic: Reports: no symptoms. All Other Systems: Reviewed and Negative Physical Exam Physical Exam General Appearance: well developed/nourished, mild distress Head: atraumatic, normal appearance Eyes: Bilateral: normal appearance. Ears, Nose, Throat: normal pharynx, normal ENT inspection Neck: normal inspection, supple, full range of motion Respiratory: normal breath sounds, no respiratory distress, left upper chest wall tenderness to palpation Cardiovascular: regular rate/rhythm Gastrointestinal: normal bowel sounds, soft, non-tender, no organomegaly Back: normal inspection, normal range of motion Extremities: normal inspection, normal capillary refill, normal range of motion, no edema Neurologic/Psych: no motor/sensory deficits, awake, alert, oriented x 3 Skin: intact, normal color, warm/dry Core Measures ACS in differential dx? Yes ASA ordered for poss ACS? Yes-ordered Severe Sepsis Present: No Septic Shock Present: No Progress Differential Diagnosis: AMI, costochondritis, unstable angina Plan of Care: Orders Procedure Date/time Status Heart Healthy Diet 01/21 B Active TROPONIN LEVEL 01/21 1000 Active EKG 01/21 1000 Active LIPID PANEL 01/21 0600 Active CBC WITHOUT DIFFERENTIAL 01/21 0600 Active BASIC ELECTROLYTES PLUS BUN&CR 01/21 0600 Active TROPONIN LEVEL 01/21 0400 Active EKG 01/21 0400 Active Code Status 01/21 0153 Active Pathway - chart 01/21 0140 Active Patient Data 01/21 0105 Active Saline Lock 01/[address] in observation 01/21 0013 Active Misc Message 01/21 0013 Active ED Holding Orders 01/21 0013 Active Vital Signs 01/21 0013 Active Code Status 01/21 0013 Complete Pathway - chart 01/21 UNK Active House Staff 01/21 UNK Active Lab Add-on Test 01/21 UNK Active VTE Mechanical Prophylaxis 01/21 UNK Active Vital Signs 01/21 UNK Active Intake & Output 01/21 UNK Active FingerStick- Glucose 01/21 UNK Active ECHOCARDIOGRAM 01/21 UNK Active EKG 01/20 2249 Active Intake & Output 01/20 2127 Active THYROID STIMULATING HORMONE 01/21 2120 Active GLYCOSYLATED HGB 01/21 2120 Active FREE T4 01/21 2120 Active TROPONIN LEVEL 01/20 2102 Active PARTIAL THROMBOPLASTIN TIME 01/20 2102 Complete PROTHROMBIN TIME 01/20 2102 Complete D-DIMER 01/20 2102 Complete COMPREHENSIVE METABOLIC PANEL 01/20 2102 Active CBC WITHOUT DIFFERENTIAL 01/20 2102 Complete EKG 01/20 2049 Active Current Medications Sig/Valerie Start time Last Medication Dose Stop Time Status Admin Amlodipine Besylate 2.5 MG DAILY 01/21 1000 AC (Norvasc) Aspirin 81 MG DAILY 01/21 1000 AC (Aspirin) Clopidogrel Bisulfate 75 MG DAILY 01/21 1000 AC (Plavix) Losartan Potassium 25 MG DAILY 01/21 1000 AC (Cozaar) Metoprolol Tartrate 25 MG BID 01/21 1000 AC (Lopressor) Metoprolol Tartrate 12.5 MG BID 01/21 1000 AC (Lopressor) Multivitamins 1 TAB DAILY 01/21 1000 AC (Theragran Vitamins) Insulin Aspart 0 TIDAC 01/21 0800 AC (NovoLOG) Heparin Sodium 5,000 UNIT Q8 01/21 06 AC (Porcine) Nitroglycerin 0.4 MG Q 5 MINUTES X 3 DO.. 01/21 0200 AC (Nitrostat) Acetaminophen 650 MG Q6P PRN 01/21 0145 AC (Tylenol) Acetaminophen 1,000 MG Q6P PRN 01/21 0145 AC (Ofirmev) Morphine Sulfate 2 MG Q4P PRN 01/21 0145 AC (Morphine) Nitroglycerin 2 GM Q6 01/20 2359 AC 01/20 (Nitro-Bid) 2112 Laboratory Tests 01/20/172119: Anion Gap 13, Estimated GFR > 60, BUN/Creatinine Ratio 19.0, Glucose 148 H, Hemoglobin A1c Pending, Calcium 9.5, Total Bilirubin 0.5, AST 24, ALT 52, Alkaline Phosphatase 51, Troponin I < 0.01, Total Protein 7.1, Albumin 4.2, Globulin 2.9, Albumin/Globulin Ratio 1.4, TSH Pending, Free T4 Pending, PT 10.7, INR 1.02, APTT 29, D-Dimer < 200, CBC w Diff NO MAN DIFF REQ, RBC 4.79, MCV 91.9 , MCH 30.5, RDW 13.7, MPV 9.8, Gran % 61.0, Lymphocytes % 28.0, Monocytes % 8.0, Eosinophils % 1.8, Basophils % 1.2, Absolute Granulocytes 4.9, Absolute Lymphocytes 2.3, Absolute Monocytes 0.6, Absolute Eosinophils 0.1, Absolute Basophils 0.1, PUBS MCHC 33.2 Diagnostic Imaging: Viewed by Me: Radiology Read. Discussed w/RAD: Radiology Read. CXR Impression: no acute abnormality, no infiltrates, normal size heart, normal mediastinum Initial ED EKG: normal axis, normal intervals, normal p-waves, normal QRS complex, normal sinus rhythm Prior EKG: unchanged Repeat EKG: unchanged Comments: PATIENT: ANTOINE FLOWERS PRESENT AGE: 56 PATIENT ACCOUNT NO: [id number] : 58 LOCATION: [facility] ORDERING PHYSICIAN: ZAHRA CONNER MD SERVICE DATE: 01/20/17 EXAM TYPE: RAD - XRY-PORTABLE CHEST XRAY EXAMINATION: XR PORTABLE CHEST CLINICAL INFORMATION: Chest pain COMPARISON: 11/26/2016 TECHNIQUE: Portable AP view of the chest was obtained. FINDINGS: Improved lung volumes. Lungs are clear. No focal consolidation or mass. Normal pulmonary vascularity. No pleural effusion or pneumothorax. Normal heart size. Regional skeleton intact. IMPRESSION: No acute pulmonary disease. DICTATED BY: RACHEL CONTE MD DATE/TIME DICTATED:01/20/172117 INTELLECTUAL PROPERTY LAWYER:NGA DATE/TIME TRANSCRIBED:01/20/172117 CONFIDENTIAL, DO NOT COPY WITHOUT APPROPRIATE AUTHORIZATION. <Electronically signed in Other Vendor System> SIGNED BY: RACHEL CONTE MD 2124 Departure Departure Disposition: HOME OR SELF CARE Condition: Stable Clinical Impression Primary Impression: Chest pain Referrals: PRISCILLA WADDELL DO (PCP/Family) Departure Forms: Customer Survey General Discharge Information Prescriptions: Current Visit Scripts Metoprolol Tartrate 1.5 TAB PO BID #30 TAB Comments 01/21/17, 0:11... discussed with dr. tony (cards)... not better with 2 inches of nitro paste... pt to be placed in observation, no need for heparin... rule-out, monitor, dr best (the patient's welt stitch cleaner) to evaluate patient this AM. Observation Note Spoke With: DHRUV ALVAREZ,TADEO Physician Advisor Notified: JANA MAY DO Place Patient In: Non-ED OBS Care Area Rationale for Observation: My rational for observation is as follows . pt is high risk (known coronary artery disease) with chest pain... merits rule out, medical optimization, consider repeat cath. Critical Care Note Critical Care Note Critical Care Time: 30-74 min
--- NOTE | 2017-01-20 21:10 | NUR ---
RECIEVED TO ROOM 3
--- NOTE | 2017-01-20 21:25 | RADIOLOGY REPORT ---
EXAMINATION: XR PORTABLE CHEST CLINICAL INFORMATION: Chest pain COMPARISON: 11/26/2016 TECHNIQUE: Portable AP view of the chest was obtained. FINDINGS: Improved lung volumes. Lungs are clear. No focal consolidation or mass. Normal pulmonary vascularity. No pleural effusion or pneumothorax. Normal heart size. Regional skeleton intact. IMPRESSION: No acute pulmonary disease.
--- NOTE | 2017-01-20 21:26 | NUR ---
CHANGED INTO HOSP GOWN. IV PLACED. LABS DRAWN. PT GIVEN NTG, ASA AND TYLENOL. ON MONITOR IN SR. PT WITH CHEST PRESSURE 8 OUT OF 10. SKIN WARM AND DRY. NO SOB.
[2017-01-20 21:37] LABS: ABSOLUTE BASOPHIL COUNT 0.1 /CUMM (0.0-0.2); ABSOLUTE EOSINOPHIL COUNT 0.1 /CUMM (0.0-0.7); ABSOLUTE GRANULOCYTE CT 4.9 /CUMM (1.4-6.5); ABSOLUTE LYMPH COUNT 2.3 /CUMM (1.2-3.4); ABSOLUTE MONOCYTE COUNT 0.6 /CUMM (0.10-0.60); BASOPHIL % 1.2 % (0.0-2.0); EOSINOPHIL % 1.8 % (0-5); MEAN CORPUSCULAR HGB 30.5 PG (27.0-31.0); MEAN CORPUSCULAR HGB CONC 33.2 G/DL (33.0-37.0); MEAN CORPUSCULAR VOLUME 91.9 FL (80.0-94.0); MEAN PLATELET VOLUME 9.8 FL (7.4-10.4); PLATELET COUNT 214 /CUMM (130-400); RBC DISTRIBUTION WIDTH 13.7 % (11.5-14.5); RED BLOOD CELL CT 4.79 /CUMM (4.70-6.10); WHITE BLOOD CELL COUNT 8.1 /CUMM (4.8-10.8)
[2017-01-20 21:47] LABS: PT 10.7 SEC (9.4-12.5); PTT 29 SEC (25-37)
--- NOTE | 2017-01-20 22:00 | NUR ---
PT DENIES ANY IMPROVEMENT IN CHEST PAIN AFTER NTG PASTE, ASA AND TYLENOL.
--- NOTE | 2017-01-20 22:59 | NUR ---
PT CONTINUES TO HAVE CHEST PAIN. DR CONNER AWARE. REPEAT EKG DONE AND SHOWN TO UBALDO
--- NOTE | 2017-01-20 23:43 | NUR ---
PT SEEN AND RE-EVALUATED BY DR CONNER AT BEDSIDE.
--- NOTE | 2017-01-21 00:05 | NUR ---
MEDS GIVEN NITROPASTE AND TORADOL IVP. VS RECHECKED AND RECORDED. LEFT ON BED RESTING , FAMILY AT BEDSIDE.STILL ATTACHED TO MONITOR.
--- NOTE | 2017-01-21 01:16 | History & Physical ---
SHAE BE MD 01/21/17 0116: General Information and HPI MD Statement: I have seen and personally examined ANTOINE FLOWERS and documented this H&P. The patient is a 56 year old M who presented with a patient stated chief complaint of []. Source of Information: patient, family, old records Exam Limitations: no limitations History of Present Illness: Patient is a 56-year-old male with significant past medical history of coronary artery disease, hypertension, hyperlipidemia, GERD, chronic back pain, type 2 diabetes , presented with chief complaints of shortness of breath, non-resolving chest pain. According to the patient in evening, when he was watching the TV. He started having chest pain which was sudden in onset, 07/09, and was associated with diaphoresis and shortness of Breath. He tried sublingual nitroglycerin 2 times without any relief, so he came to the [facility] ED for further management. According to him, chest pain is located in the center of the chest and aggravated by taking deep breathing. Nothing resolved it, but after Nitropatch he is having some relief in the breathing. Of note, he was recently admitted to [facility] and was sent for coronary angiogram as an outpatient in October. Coronary angiography was done which showed blockage in the right coronary artery, but anyhow, it was very difficult to place the stent, so he was advised to follow-up for further management , either medication or bypass grafting. He is having intermittent chest pain, but most of the time it was relieved with sublingual nitroglycerin but this time it is non-resolving. He thinks this pain is different from the pain in the past. He is also complaining of episodes of hypoglycemia, especially after joining the cardiac rehabilitation program. According to him. At the start of exercise his sugars remain 200 and after 15 and 20 minutes of exercise it easily went down to 50 and 60. He elevated it up to his PCP and he changed the doses of the antidiabetic medication. Surgical history-appendicectomy, left knee ACL repair Family history- not significant Personal history -he quit smoking 2 years ago, Vital signs at the time of admission -temperature 97.3, pulse 71, respiratory rate 20, blood pressure 120/80, SPO2 95% on room air Chest x-ray -no any cardiopulmonary abnormality Allergies/Medications Allergies: Coded Allergies: No Known Allergies (01/20/17) Compliance With Home Meds: GOOD Past History Travel History Traveled to [place] past 21 day No Medical History Neurological: NONE EENT: NONE Cardiovascular: angina, CAD, hypertension, hyperlipidemia Respiratory: NONE Gastrointestinal: GERD Hepatic: NONE Renal: NONE Musculoskeletal: chronic back pain Psychiatric: NONE Endocrine: diabetes Blood Disorders: NONE Cancer(s): NONE ABA THERAPIST/Reproductive: NONE History of MRSA: No History of VRE: No History of CDIFF: No Surgical History Surgical History: appendectomy, left knee ACL repair Past Family/Social History Family History Relations & Conditions if any FATHER (Cancer (unknown which kind)). grand father (Heart Attack at 70 years of age). Psychosocial History Who Do You Live With? spouse Services at Home: None Primary Language: Micronesian ETOH Use: occasional use Illicit Drug Use: denies illicit drug use Name of POA/HCP: Diana, , next to kin Functional Ability ADLs Independent: dressing, eating, toileting, bathing. Ambulation: independent IADLs Independent: shopping, housework, finances, food prep, telephone, transportation , medication admin. Review of Systems Review of Systems Constitutional: Reports: diaphoresis. Denies: chills, fever, malaise, weakness. EENTM: Denies: no symptoms. Cardiovascular: Reports: chest pain. Denies: edema, orthopena, palpitations, peripheral edema. Respiratory: Reports: short of breath. Denies: cough, hemoptysis, orthopnea, sputum production, stridor, wheezing. GI: Denies: abdominal pain, bloating, constipation, diarrhea, distention, bowel incontinence, nausea, vomiting. Genitourinary: Denies: discharge, dysuria, frequency, hematuria, hesitation, nocturia. Musculoskeletal: Denies: back pain, gout, joint pain, joint swelling, muscle pain, muscle stiffness. Skin: Denies: no symptoms. Neurological/Psychological: Reports: anxiety. Denies: headache, numbness, paresthesia, tingling, tremors, weakness. Exam & Diagnostic Data Last 24 Hrs of Vital Signs/I&O Vital Signs Date Time Temp Pulse Resp B/P B/P Pulse O2 O2 Flow FiO2 Mean Ox Delivery Rate 01/21 0001 96.6 59 16 105/65 98 Room Air 01/20 2235 97.9 67 18 120/68 97 Room Air 01/208 Room Air 01/205 71 112/78 01/21 2040 97.3 71 20 120/80 95 Room Air Intake & Output 01/21 0800 01/21 0000 01/20 1600 Intake Total Output Total Balance Patient 83.461 kg Weight Weight Reported by Patient Measurement Method Physical Exam General Appearance Alert, Oriented X3, Cooperative, No Acute Distress Skin No Rashes, No Breakdown, No Significant Lesion HEENT Atraumatic, PERRLA, EOMI Neck Supple, No JVD Cardiovascular Normal S1, Normal S2 Lungs Clear to Auscultation, Normal Air Movement Abdomen Soft, No Tenderness Neurological Normal Speech Extremities No Clubbing, No Cyanosis, No Edema, Normal Pulses Vascular Normal Pulses, Pulses Symmetrical Last 24 Hrs of Labs/Rojas: Laboratory Tests 01/20/172119: Anion Gap 13, Estimated GFR > 60, BUN/Creatinine Ratio 19.0, Glucose 148 H, Hemoglobin A1c Pending, Calcium 9.5, Total Bilirubin 0.5, AST 24, ALT 52, Alkaline Phosphatase 51, Troponin I < 0.01, Total Protein 7.1, Albumin 4.2, Globulin 2.9, Albumin/Globulin Ratio 1.4, TSH 1.590, Free T4 0.96, PT 10.7, INR 1.02, APTT 29, D-Dimer < 200, CBC w Diff NO MAN DIFF REQ, RBC 4.79, MCV 91.9, MCH 30.5, RDW 13.7, MPV 9.8, Gran % 61.0, Lymphocytes % 28.0, Monocytes % 8.0, Eosinophils % 1.8, Basophils % 1.2, Absolute Granulocytes 4.9, Absolute Lymphocytes 2.3, Absolute Monocytes 0.6, Absolute Eosinophils 0.1, Absolute Basophils 0.1, PUBS MCHC 33.2 Diagnostic Data EKG Results NSR, HR-80,QTc-430 CXR Results No acute pulmonary disease. Assessment/Plan Assessment: Patient is a 56-year-old male with significant past medical history of coronary artery disease, hypertension, hyperlipidemia, GERD, chronic back pain, type 2 diabetes , presented with chief complaints of shortness of breath, non-resolving chest pain. Vital signs at the time of admission -temperature 97.3, respiratory rate 20, blood pressure 120/80, SPO2 95% on room air EKG-normal sinus rhythm, heart rate 80, QTC 430 Chest x-ray -no any acute cardiopulmonary abnormalities Plan - Ruling out acute coronary syndrome - * We will admit the patient into telemetry floor * We will place a cardiology consult for Dr. Thompson * We will follow his recommendation * We will do serial troponins and EKGs. Last 2 sets of troponins were negative * Patient already have coronary angiograms, we will discuss further care, probably patient may need coronary angiography followed by bypass grafting. * We will continue aspirin and clopidogrel * We will consider heparin drip, as patient is having chest pain, even on aspirin and clopidogrel Type 2 diabetes mellitus with recurrent episodes of hypoglycemia * We will start NovoLog according to the sliding scale * Will check blood sugar 3 times a day/at bedtime * We will watch for episodes of hypoglycemia * After discharge, we will reevaluate for oral medication Hypertension- * Continue home medication metoprolol, losartan Hyperlipidemia * We will start him on high-dose atorvastatin 80 milligrams daily * We will advise a low-fat diet Diet -heart healthy, carbohydrate type II. Diet DVT prophylaxis-ALP S CODE STATUS-full code As Ranked By This Provider Problem List: 1. T2DM (type 2 diabetes mellitus) 2. Unstable angina 3. HTN (hypertension) 4. Chest pain Core Measures/Miscellaneous Acute Coronary Syndrome ACS Diagnosis: Yes Date of most recent Echo 11/25/16 Last Known EF % 65 ASA W/I 24hr of admit Yes Beta-Vinnie W/I 24hrs Yes Currently on Statin Yes Cerebrovascular Accident CVA/TIA Diagnosis: No Congestive Heart Failure CHF Diagnosis: No Venous Thromboembolism VTE Risk Factors: Age > 40, Obesity No [facility] VTE prophylaxis d/t: No contraindications No VTE Pharm Prophylaxis d/t: No contraindications VTE Diagnosis: No VTE Type: NONE VTE Confirmed by (Test): NONE Severe Sepsis Severe Sepsis Present: No Septic Shock Septic Shock Present: No Miscellaneous Documentation Attending Case Discussed With: TADEO BARTLETT MD Primary Care Physician: PRISCILLA WADDELL DO Patient sees these Specialists cardiolgy - Dr Thompson Level of Patient Care: Telemetry ALDEN VELOZ 01/21/17 0117: General Information and HPI Allergies/Medications Home Med list Amlodipine (Norvasc) 2.5 MG TABLET 1 TAB PO DAILY HTN (Reported) Aspirin (Aspirin*) 81 MG TAB.CHEW 81 MG PO DAILY for heart health Atorvastatin Calcium 40 MG TABLET 1 TAB PO DAILY HEART HEALTH Clopidogrel Bisulfate (Plavix) 75 MG TABLET 1 TAB PO DAILY BLOOD THINNER Glyburide/Metformin HCl (Glyburide-Metformin 2.5-500 MG) 2.5 MG-500 MG TABLET 1 TAB PO BID DM (Reported) Reason to Stop at ADM: ON ISS Losartan Potassium 50 MG TABLET 0.5 TAB PO DAILY BP (Reported) Reason to Stop at ADM: STARTING BETA VINNIE AND NITRO, ALREADY BORDERLINE LOW BP Metoprolol Tartrate 25 MG TABLET 1.5 TAB PO BID HEART HEALTH Nitroglycerin 0.4 MG TAB.SUBL 1 TAB SL AD PRN for CHEST PAIN 1st sign of attack; may repeat every 5 minutes until relief; if pain persists after 3 tablets in 15 minutes, prompt medical att Sitagliptin Phosphate (Januvia) 100 MG TABLET 1 TAB PO DAILY DM (Reported) Reason to Stop at ADM: ISS Resident Review Statement Resident Statement: examined this patient, discussed with continuous improvement intern, agreed with continuous improvement intern, discussed with family, reviewed EMR data (avail), discussed with nursing , discussed with case mgmt, reviewed images, amended to note Other Findings: 56-year-old male with a past medical history of coronary artery disease status post catheterization without any angioplasty, hyperlipidemia, GERD non-insulin- dependent diabetes mellitus, presented to the ED with chief complaint of substernal chest pressure that he grades as 6-7 out of 10. Of note he took 2 sublingual nitroglycerin with no relief. He was recently admitted in October 2016 for unstable angina and was scheduled to get an elective cardiac upon discharge. He also had an abnormal stress test with Dr. Thompson where he became diaphoretic and developed chest pressure with ST depressions noted. According to the patient he underwent a cardiac cath in November 2016 and was found to have obstructive coronary artery disease in the RCA?, however, they were unable to place a stent, and he was told that they will optimize him on medical management before considering a bypass surgery. The patient states that he was watching TV last evening when he started to experience sudden onset substernal chest pressure stating that it felt as if something was sitting on his chest. He took nitroglycerin twice but did not not help alleviate his pain which is why he decided to come to the ER. Of note the pain did not radiate to his jaw or arm, was associated with some difficulty breathing but there is no history of dictations, nausea however he did feel diaphoretic. Of note patient does have recurrent episodes of chest pain about 2 -3 times every week however he takes nitroglycerin 1 within a couple of minutes his pain subsides. The fact that the pain did not subside prompted him to come to the ER today. Patient does endorse having stress at work recently, denies headaches, dizziness , lightheadedness, any recent history of upper respiratory tract infection, history of prolonged travel, and or sick contact. He denies fever, chills, abdominal pain, urinary complaints, nausea, vomiting, diarrhea, any changes in his stools. Patient does endorse episodes of hypoglycemia with blood sugars and 30 to 40s while undergoing cardiac rehabilitation. He is also with his primary care physician and does not see an regulatory leader for his diabetes. Vitals at the time of admission blood pressure 120/80, respiratory rate of 20, pulse 71, afebrile saturating 95% on room air. On physical exam he is alert and oriented x3, and in no acute distress, sitting comfortably in bed, with NAD. HEENT revealed dry mucous membranes. Cardiovascular exam pertinent for normal S1, S2, no murmurs rubs or gallops appreciated. Examination of the neck did not reveal an elevated JVD. Respiratory exam was benign with chest clear to auscultation bilaterally. Abdominal exam was benign with abdomen soft, nontender, nondistended with normal bowel sounds heard in all 4 quadrants. Examination of the lower extremities did not reveal any edema. Labs pertinent for normal white blood cell count of 8100, and H&H of 14.6/44.0, MCV 91.9, platelet count of 214,000. Serum chemistries unremarkable with sodium of 1:30, potassium of 4.3, bicarbonate of 21, anion gap of 13, BUN 19 and creatinine 1.0. Serum glucose elevated to 148. LFTs unremarkable with an AST/ ALT of 24/52, alkaline phosphatase of 51, first set of troponin negative at less than 0.01 with a glucose elevated to 148. INR was 1.02 with d-dimer less than 200. Chest x-ray showed clear lungs with no focal consolidation or mass, normal pulmonary vascularity no pleural effusion or pneumothorax with a normal heart size. EKG revealed normal sinus rhythm, Q waves in lead 23 and aVF, first-degree AV block with a MD interval of 216, normal axis, no ST-T changes. Last echocardiogram was in October 2016 which showed normal left ventricle size , normal left ventricular wall motion with an EF of more than 65%. In the ER he received aspirin 325 mg oral 1, Tylenol 975 mg oral 1 and Nitro- Bid 2 g patch every 6 hours. Assessment and Plan Place under Obs on Tele #Typical chest pain Most likely secondary to angina questionable unstable versus NSTEMI (unlikely given no elevation in troponins) Spoke with Dr. Harrison in the ER who does not want the patient to be started on IV heparin for now Trend troponins and EKG at 4 AM and 10 AM Will pan off repeating an echocardiogram for now Nitrostat tablets 3 for chest pain Continue on nitroglycerin paste 2 g every 6hrs Cardiology consult with Dr. Thompson in a.m. #History of coronary artery disease Continue on losartan 25 mg daily, Plavix and 5 mg daily, aspirin 81 mg daily, metoprolol 25 mg twice a day and atorvastatin 80 mg daily #[id number]-[id number] diabetes mellitus Of note patient has been having episodes of hypoglycemia to the 40s and 50s. He should be discontinued on glyburide and continued on metformin and see regulatory leader upon discharge For now we'll place him on NovoLog sliding scale 3 times a day at bedtime Follow-up Accu-Cheks F/U HbA1c. Last one in Oct was 7.8 Consider endocrinology referral upon discharge. #Hypertension Continue on amlodipine 2.5 mg daily, losartan 25 mg daily, metoprolol 25 mg twice a day DVT prophylaxis Heparin 5000 international units 3 times a day subcutaneous Diet Heart Healthy CODE STATUS Full code TADEO BARTLETT 01/21/17 0431: Attending MD Review Statement Attending Statement Attending MD Statement: examined this patient, discuss w/resident/PA/FIELD CROP TECHNICAL OFFICER, agreed w/resident/PA/FIELD CROP TECHNICAL OFFICER, reviewed EMR data (avail), reviewed images, amended to note Attending Assessment/Plan: CC: Chest pain PMH: HTN, DM, HLD, GERD, CAD Patient came to ER for persistent chest pain, started 6 PM, started at rest, 6/ 10 in intensity, constant, heaviness in character, associated with sweating, not relieved with 2 sublingual nitroglycerin, so he came to ER. Patient received nitro, aspirin and Toradol ER, pain is 4/10, still persistent. Patient denies any cough, expectoration, shortness of breath, palpitations, dizziness, LOC. Patient gets frequent chest pains, relieved with nitroglycerin, this pain is different from those episodes according to patient. Patient was admitted with similar symptoms in October 2016, was discharged to be followed up with outpatient cardiac catheterization, patient underwent the same and was found to have some blockage, it was decided to optimize medical treatment at that time. Patient had been compliant with his medications. Vitals: Unremarkable. On exam: A O 3, cooperative, no acute distress, neck supple, JVD normal, no lymphadenopathy, mucosa moist, no focal neurological deficit, no dependent edema , no obvious skin rashes or inflammation CVS: S1-S2, RRR. RS: Clear to auscultate bilaterally. Abdomen: Soft, NT, ND, bowel sounds present. Labs: CBC unremarkable, bicarbonate 21, anion gap 13, BUN 19, creatinine 1.0, glucose 148, troponin less than 0.01, d-dimer less than 200 EKG: No acute changes CXR: No acute processes A and P Patient has history of CAD, hypertension, diabetes. Cardiac markers are negative. No acute EKG changes. ?Unstable angina. ER physician called the digital controls technical officer who suggested not to start heparin drip for now and continue medical management # Chest pain rule out ACS # History of HTN # History of DM - Place in observation on telemetry floor - front desk monitor - Serial EKG, troponin - Continue aspirin, Plavix, atorvastatin - Continue home doses of metoprolol, losartan, amlodipine - Cardiology consult in a.m. - Hold oral hypoglycemic, continue sliding scale short-acting insulin - Continue all his home medications - Heparin for DVT prophylaxis
[2017-01-21] MEDS ORDERED: NORVASC2.5 M1 PO (01:43)
[2017-01-21] MEDS ORDERED: METOPROLOL TART25 M1 PO (01:44)
--- NOTE | 2017-01-21 02:02 | NUR ---
HOUSE STAFF IN TO EVAL AND WRITE TELE ADMIT ORDERS.
--- NOTE | 2017-01-21 03:40 | NUR ---
PT TRANSFERRED TO HOSPITAL BED , PT BACK TO SLEEP.
--- NOTE | 2017-01-21 05:03 | NUR ---
LABS DRAWN VIA BUTTERFLY SST,LAV SENT EKG DONE. DENIES ANY PAIN.
[2017-01-21 05:12] LABS: ABSOLUTE BASOPHIL COUNT 0 /CUMM (0.0-0.2); ABSOLUTE EOSINOPHIL COUNT 0.1 /CUMM (0.0-0.7); ABSOLUTE GRANULOCYTE CT 3.7 /CUMM (1.4-6.5); ABSOLUTE LYMPH COUNT 2.5 /CUMM (1.2-3.4); ABSOLUTE MONOCYTE COUNT 0.6 /CUMM (0.10-0.60); BASOPHIL % 0.5 % (0.0-2.0); GRANULOCYTE % 52.8 % (42.2-75.2); HEMATOCRIT 41.1 % (42-52); MEAN CORPUSCULAR HGB 30.6 PG (27.0-31.0); MEAN CORPUSCULAR HGB CONC 33.5 G/DL (33.0-37.0); MEAN CORPUSCULAR VOLUME 91.3 FL (80.0-94.0); MEAN PLATELET VOLUME 9.3 FL (7.4-10.4); PLATELET COUNT 213 /CUMM (130-400); RBC DISTRIBUTION WIDTH 13.5 % (11.5-14.5)
--- NOTE | 2017-01-21 06:37 | NUR ---
PT AWAKES , VS RECHECKED AND RECORDED., BP-106/63.
--- NOTE | 2017-01-21 07:31 | NUR ---
PT UP TO USE BATHROOM OFFERS NO COMPLAINTS STATES HE IS DOING BETTER TODAY NO CHEST PAIN
--- NOTE | 2017-01-21 07:35 | PN- Housestaff ---
Subjective Follow-up For: 1. Chest pain Review of Systems Constitutional: Reports: see HPI. Objective Last 24 Hrs of Vital Signs/I&O Vital Signs Date Time Temp Pulse Resp B/P B/P Pulse O2 O2 Flow FiO2 Mean Ox Delivery Rate 01/21 0731 79 16 115/73 97 Room Air 01/21 0636 71 15 106/63 97 Room Air 01/21 0310 67 16 106/65 95 Room Air 01/21 0001 96.6 59 16 105/65 98 Room Air 01/20 2235 97.9 67 18 120/68 97 Room Air 01/208 Room Air 01/20 2115 71 112/78 01/20 2040 97.3 71 20 120/80 95 Room Air Intake & Output 01/21 0800 01/21 0000 01/20 1600 Intake Total Output Total Balance Patient 184 lb Weight Weight Reported by Patient Measurement Method Physical Exam General Appearance: Alert, Oriented X3, Cooperative, No Acute Distress Cardiovascular: Regular Rate, Normal S1, Normal S2, No Murmurs Lungs: Clear to Auscultation, Normal Air Movement Abdomen: Normal Bowel Sounds, Soft, No Tenderness, No Hepatospenomegaly Current Medications: Current Medications Sig/Valerie Start time Last Medication Dose Route Stop Time Status Admin Acetaminophen 0 .STK-MED ONE 01/21 0321 DC PO Acetaminophen 650 MG Q6P PRN 01/21 0145 AC 01/21 PO 0330 Acetaminophen 1,000 MG Q6P PRN 01/21 0145 AC IV Acetaminophen 975 MG ONCE ONE 01/20 2115 DC 01/20 PO 01/20 Amlodipine Besylate 2.5 MG DAILY 01/21 1000 AC PO Aspirin 81 MG DAILY 01/21 1000 AC PO Aspirin 325 MG ONCE ONE 01/20 2115 DC 01/20 PO 01/20 Atorvastatin Calcium 80 MG 1700 01/21 1700 AC PO Clopidogrel Bisulfate 75 MG DAILY 01/21 1000 AC PO Heparin Sodium 5,000 UNIT Q8 01/21 0600 AC 01/21 (Porcine) SC 0648 Insulin Aspart 0 TIDAC 01/21 0800 AC SC Ketorolac 30 MG ONCE ONE 01/20 2345 DC 01/21 Tromethamine IV 01/20 2346 0005 Losartan Potassium 25 MG DAILY 01/21 1000 AC PO Metoprolol Tartrate 25 MG BID 01/21 1000 AC PO Metoprolol Tartrate 12.5 MG BID 01/21 1000 AC PO Morphine Sulfate 2 MG Q4P PRN 01/21 0145 AC IV Morphine Sulfate 4 MG ONCE ONE 01/20 2345 DC IV 01/20 2346 Multivitamins 1 TAB DAILY 01/21 1000 AC PO Nitroglycerin 0.4 MG Q 5 MINUTES X 3 DO.. 01/21 0200 AC SL Nitroglycerin 2 GM Q6 01/20 2359 AC 01/21 TOP 0649 Last 24 Hrs of Lab/Rojas Results Last 24 Hrs of Labs/Mics: Laboratory Tests 01/21/17 0505: Anion Gap 10, Estimated GFR > 60, BUN/Creatinine Ratio 24.0, Troponin I < 0.01, Triglycerides 334 H, Cholesterol 127, LDL Cholesterol, Calc 20 L, HDL Cholesterol 41, Cholesterol/HDL Ratio 3, CBC w Diff NO MAN DIFF REQ, RBC 4.50 L , MCV 91.3, MCH 30.6, RDW 13.5, MPV 9.3, Gran % 52.8, Lymphocytes % 36.0, Monocytes % 8.7, Eosinophils % 2.0, Basophils % 0.5, Absolute Granulocytes 3.7, Absolute Lymphocytes 2.5, Absolute Monocytes 0.6, Absolute Eosinophils 0.1, Absolute Basophils 0, PUBS MCHC 33.5 01/21/17 0400: Troponin I Cancelled 01/20/172119: Anion Gap 13, Estimated GFR > 60, BUN/Creatinine Ratio 19.0, Glucose 148 H, Hemoglobin A1c Pending, Calcium 9.5, Total Bilirubin 0.5, AST 24, ALT 52, Alkaline Phosphatase 51, Troponin I < 0.01, Total Protein 7.1, Albumin 4.2, Globulin 2.9, Albumin/Globulin Ratio 1.4, TSH 1.590, Free T4 0.96, PT 10.7, INR 1.02, APTT 29, D-Dimer < 200, CBC w Diff NO MAN DIFF REQ, RBC 4.79, MCV 91.9, MCH 30.5, RDW 13.7, MPV 9.8, Gran % 61.0, Lymphocytes % 28.0, Monocytes % 8.0, Eosinophils % 1.8, Basophils % 1.2, Absolute Granulocytes 4.9, Absolute Lymphocytes 2.3, Absolute Monocytes 0.6, Absolute Eosinophils 0.1, Absolute Basophils 0.1, PUBS MCHC 33.2 Assessment/Plan Assessment: 56-year-old male with a past medical history of coronary artery disease status post catheterization without any angioplasty, hyperlipidemia, GERD non-insulin- dependent diabetes mellitus, presented to the ED with chief complaint of substernal chest pressure that he grades as 6-7 out of 10. Of note he took 2 sublingual nitroglycerin with no relief. He was recently admitted in October 2016 for unstable angina and was scheduled to get an elective cardiac upon discharge. He also had an abnormal stress test with Dr. Thompson where he became diaphoretic and developed chest pressure with ST depressions noted. According to the patient he underwent a cardiac cath in November 2016 and was found to have obstructive coronary artery disease in the RCA?, however, they were unable to place a stent, and he was told that they will optimize him on medical management before considering a bypass surgery. Problem List: 1. Chest pain 2. Unstable angina 3. T2DM (type 2 diabetes mellitus) 4. HTN (hypertension) Pain Location: Chest Pain Goal: Remain pain free Pain Plan: PRN Tylenol and Percocet Tomorrow's Labs & Rationales: Not needed DVT/Prophylaxis: pharmacological Discharge Plan Anticipated Discharge (Day): today
--- NOTE | 2017-01-21 07:39 | Patient Discharge Instructions ---
Discharge Instructions General Discharge Information You were seen/treated for: Chest pain Special Instructions: Please: 1. take medications as instructed below 2. follow up outpatient with Dr. Thompson, Cardiology in a week after discharge 3. follow up with your PCP, Dr. Aguirre regarding sugar control within a week of discharge 4. follow up with gastroenterology, Dr. Nye within 1-2 weeks of discharge 5. come back to the ED if symptoms recur or if you experience dizziness, low BP or low HR Activity Activity Self Limited: Yes Acute Coronary Syndrome Inclusion Criteria At DC or during hospital stay patient has or had the following: ACS DIAGNOSIS No (Stable Angina) Discharge Core Measures Meds if any: Prescribed or Continued at Discharge SHAD/ARB if EF <40% Yes Aspirin Yes Beta-Vinnie Yes Statin Yes Meds if any: NOT Prescribed or Continued at Discharge Congestive Heart Failure Inclusion Criteria At DC or during hospital stay patient has or had the following: CHF DIAGNOSIS No Discharge Core Measures Meds if any: Prescribed or Continued at Discharge Meds if any: NOT Prescribed or Continued at Discharge Cerebrovascular accident Inclusion Criteria At DC or during hospital stay patient has or had the following: CVA/TIA Diagnosis No Discharge Core Measures Meds if any: Prescribed or Continued at Discharge Meds if any: NOT Prescribed or Continued at Discharge Venous thromboembolism Inclusion Criteria VTE Diagnosis No VTE Type NONE VTE Confirmed by (Test) NONE Discharge Core Measures - Per Current guidelines, there needs to be overlap - treatment for the first 5 days of Warfarin therapy. - If discharged on Warfarin prior to 5 days of - overlap therapy, the patient will need to be - assessed for post discharge needs including - *Post discharge parental anticoagulation - *Warfarin and/or parental anticoagulation education - *Follow up date to check INR post discharge At least 5 days overlap therapy as Inpatient No Meds if any: Prescribed or Continued at Discharge Note: Overlap Therapy is Warfarin and Anticoagulant Meds if any: NOT Prescribed or Continued at Discharge
--- NOTE | 2017-01-21 07:46 | NUR ---
GOING TO ROOM 108
--- NOTE | 2017-01-21 07:50 | NUR ---
bed 108
--- NOTE | 2017-01-21 08:05 | NUR ---
HOUSE STAFF IN ROOM FOR EVAL
--- NOTE | 2017-01-21 08:36 | NUR ---
REPORT GIVEN TO NILESH GATICAOIL TREATER CALLED
[2017-01-21 09:00] VITALS: BP 126/80
--- NOTE | 2017-01-21 09:00 | NUR ---
RECEIVED FROM ER: 56 YEAR OLD MALE ADMITTED 23 HOUR HOLD, TELE HOLD FOR COMPLAINTS OF CHEST PAIN. ALERT ORIENTED X3. RATING 3/10 CHEST PAIN, MID CENTER CHEST PRESSURE. VSS. NSR 1ST DEGRESS AV BLOCK, HEART RATE IN 60'S. PATIENT SETTLED INTO ROOM. NOTIFIED MATERIAL CONTROL SUPERVISOR OF PATIENT ARRIVAL. REVIEWED POC. CALL SCHWARTZ IN REACH. SEE NURSING ASSESSMENT FLOWSHEETS FOR FURTHER DOCUMENATION.
[2017-01-21] MEDS ORDERED: METFORMIN HCL500 M3 PO (09:49)
[2017-01-21] MEDS ORDERED: METOPROLOL TA37.5 MG PO (09:50)
[2017-01-21 10:33] VITALS: BP 118/80
--- NOTE | 2017-01-21 10:35 | NUR ---
REVIEWED MEDICATIONS WITH MANAGER SOURCING DR RAO. AT THIS TIME BP 118/80, P 64. PER MANAGER SOURCING WILL HOLD METOPROLOL, NORVASC, AND COZAAR AT THIS TIME. PER MANAGER SOURCING WILL SPEAK WITH RESIDENT AND CARDIOLOGY REGARDING MEDICATION REGIMEN.
--- NOTE | 2017-01-21 10:49 | Cons- Cardiology ---
General Information and HPI Consulting Request Date of Consult: 01/21/17 Requested By: JAZMYN JARA MD Reason for Consult: Recurrent chest pain. Source of Information: patient, old records Exam Limitations: no limitations History of Present Illness: Mr. Sharan Dawn is a 56-year-old male with long-standing history of tobacco use, chronic obstructive pulmonary disease, hypertension, dyslipidemia, diabetes mellitus, gastroesophageal reflux disease, and coronary artery disease who presented to the ED on 01/20/2017 with complaints of chest discomfort. At around 7:00 PM yesterday (01/20/2017) Mr. Dawn became diaphoretic then began experiencing chest discomfort and difficulty breathing. The discomfort was described as "someone sitting on my chest" of 7-8/10 in intensity. He took sublingual nitroglycerin 0.4 mg 1 without relief and then took a second sublingual nitroglycerin 0.4 mg 1 five minutes later without relief and then called for an ambulance. In the ED, he received an additional sublingual nitroglycerin again without relief, but felt improved approximately 30 minutes after topical nitrates were placed. Mr. Dawn began having recurrent episodes of chest discomfort in September 2016 and as a result was referred for stress testing which was performed at [facility] on 11/03/2016 and was positive by clinical, electrocardiographic, and nuclear criteria. It was recommended that he go to the ED at that time, but previous commitments precluded him being able to do this. He did present to the ED later on 11/23/2016 and was transferred to [facility] for cardiac catheterization. This was was performed on 11/28/2016 and revealed: LM-patent, LAD-30% ostial stenosis with diffuse luminal irregularities, LCx-20% ostial stenosis with luminal irregularities, RCA-dominant with total occlusion proximally at the site of the RV branch takeoff with visualization of the distal vessel by intra-and inter-collaterals, and LV gram-EF 55%. Based on these findings, multiple attempts were made to cross the occluded RCA that were, unfortunately, unsuccessful. Despite an appropriate medical regimen, Mr. Dawn has continued to have episodes of chest discomfort. Allergies/Medications Allergies: Coded Allergies: No Known Allergies (01/20/17) Home Med List: Amlodipine (Norvasc) 2.5 MG TABLET 1 TAB PO DAILY HTN (Reported) Aspirin (Aspirin*) 81 MG TAB.CHEW 81 MG PO DAILY for heart health Atorvastatin Calcium 40 MG TABLET 1 TAB PO DAILY HEART HEALTH Clopidogrel Bisulfate (Plavix) 75 MG TABLET 1 TAB PO DAILY BLOOD THINNER Glyburide/Metformin HCl (Glyburide-Metformin 2.5-500 MG) 2.5 MG-500 MG TABLET 1 TAB PO BID DM (Reported) Reason to Stop at ADM: ON ISS Losartan Potassium 50 MG TABLET 0.5 TAB PO DAILY BP (Reported) Reason to Stop at ADM: STARTING BETA TONIO AND NITRO, ALREADY BORDERLINE LOW BP Metoprolol Tartrate 37.5 MG TABLET 1 TAB PO DAILY BP (Reported) PT STATES HE TAKES 1.5 TABLET OF 25 MG TABLET IT ONCE DAILY NOT BID Nitroglycerin 0.4 MG TAB.SUBL 1 TAB SL AD PRN for CHEST PAIN 1st sign of attack; may repeat every 5 minutes until relief; if pain persists after 3 tablets in 15 minutes, prompt medical att Sitagliptin Phosphate (Januvia) 100 MG TABLET 1 TAB PO DAILY DM (Reported) Reason to Stop at ADM: ISS Review of Systems Review of Systems: A 14 point system review was obtained and was noncontributory, other than for the fact the patient wears glasses. Past History Travel History Traveled to [place] past 21 day No Medical History Blood Transfusion Hx: No Neurological: NONE EENT: NONE Cardiovascular: angina, CAD, hypertension, hyperlipidemia Respiratory: NONE Gastrointestinal: GERD Hepatic: NONE Renal: NONE Musculoskeletal: chronic back pain Psychiatric: NONE Endocrine: diabetes Blood Disorders: NONE Cancer(s): NONE STATOR TESTER/Reproductive: NONE Surgical History Surgical History: appendectomy, left knee ACL repair Family History Relations & Conditions If Any: FATHER (Cancer (unknown which kind)). grand father (Heart Attack at 70 years of age). Psychosocial History Where Do You Live? Home Who Do You Live With? spouse Services at Home: None Primary Language: Hungarian Smoking Status: Former Smoker ETOH Use: occasional use Illicit Drug Use: denies illicit drug use Name of POA/HCP: Diana, , next to kin Functional Ability ADLs Independent: dressing, eating, toileting, bathing. Ambulation: independent IADLs Independent: shopping, housework, finances, food prep, telephone, transportation , medication admin. Exam & Diagnostic Data Vital Signs and I&O Vital Signs Date Time Temp Pulse Resp B/P B/P Pulse O2 O2 Flow FiO2 Mean Ox Delivery Rate 01/21 1033 64 118/80 01/21 0900 Room Air 01/21 0900 97.5 60 18 126/80 96 Room Air 01/21 0754 97.0 80 20 109/71 96 Room Air 01/21 0731 79 16 115/73 97 Room Air 01/21 0636 71 15 106/63 97 Room Air 01/21 0310 67 16 106/65 95 Room Air 01/21 0001 96.6 59 16 105/65 98 Room Air 01/20 2235 97.9 67 18 120/68 97 Room Air 01/20 2128 Room Air 01/20 2115 71 112/78 01/20 2040 97.3 71 20 120/80 95 Room Air Intake & Output 01/21 1600 01/21 0800 01/21 0000 01/20 1600 01/20 0800 01/20 0000 Intake Total Output Total Balance Patient 184 lb 184 lb Weight Weight Reported by Patient Reported by Patient Measurement Method Physical Exam: Well-developed, well-nourished middle-aged male in no acute distress. Vital signs: See above. HEENT: Normocephalic, atraumatic, EOMI, moist mucous membranes. Neck: No JVD, no bruits. Lungs: [place]. Heart: S1, S2 with no murmur, gallop, or rub appreciated. PMI fifth ICS at MCL. Abdomen: Soft, nontender, positive bowel sounds. Extremities: No edema. Labs/Rojas Results: Laboratory Tests 01/21 01/21 01/21 1016 0505 0400 Chemistry Sodium (137 - 145 mmol/L) 139 Potassium (3.5 - 5.1 mmol/L) 4.4 Chloride (98 - 107 mmol/L) 106 Carbon Dioxide (22 - 30 mmol/L) 23 Anion Gap (5 - 16) 10 BUN (9 - 20 mg/dL) 24 H Creatinine (0.7 - 1.2 mg/dL) 1.0 Estimated GFR (>60 ml/min) > 60 BUN/Creatinine Ratio (7 - 25 %) 24.0 Troponin I (<0.11 ng/ml) < 0.01 < 0.01 Cancelled Triglycerides (<150 mg/dL) 334 H Cholesterol (< 200 MG/DL) 127 LDL Cholesterol, Calc (65 - 129 mg/dL) 20 L HDL Cholesterol (40 - 60 mg/dL) 41 Cholesterol/HDL Ratio (0.00 - 4.88 %) 3 Hematology CBC w Diff NO MAN DIFF REQ WBC (4.8 - 10.8 /CUMM) 7.0 RBC (4.70 - 6.10 /CUMM) 4.50 L Hgb (14.0 - 18.0 G/DL) 13.8 L Hct (42 - 52 %) 41.1 L MCV (80.0 - 94.0 FL) 91.3 MCH (27.0 - 31.0 PG) 30.6 RDW (11.5 - 14.5 %) 13.5 Plt Count (130 - 400 /CUMM) 213 MPV (7.4 - 10.4 FL) 9.3 Gran % (42.2 - 75.2 %) 52.8 Lymphocytes % (20.5 - 51.1 %) 36.0 Monocytes % (1.7 - 9.3 %) 8.7 Eosinophils % (0 - 5 %) 2.0 Basophils % (0.0 - 2.0 %) 0.5 Absolute Granulocytes (1.4 - 6.5 /CUMM) 3.7 Absolute Lymphocytes (1.2 - 3.4 /CUMM) 2.5 Absolute Monocytes (0.10 - 0.60 /CUMM) 0.6 Absolute Eosinophils (0.0 - 0.7 /CUMM) 0.1 Absolute Basophils (0.0 - 0.2 /CUMM) 0 PUBS MCHC (33.0 - 37.0 G/DL) 33.5 01/200 Chemistry Sodium (137 - 145 mmol/L) 138 Potassium (3.5 - 5.1 mmol/L) 4.3 Chloride (98 - 107 mmol/L) 104 Carbon Dioxide (22 - 30 mmol/L) 21 L Anion Gap (5 - 16) 13 BUN (9 - 20 mg/dL) 19 Creatinine (0.7 - 1.2 mg/dL) 1.0 Estimated GFR (>60 ml/min) > 60 BUN/Creatinine Ratio (7 - 25 %) 19.0 Glucose (65 - 99 mg/dL) 148 H Hemoglobin A1c (4.2 - 5.8 %) 7.3 H Calcium (8.4 - 10.2 mg/dL) 9.5 Total Bilirubin (0.2 - 1.3 mg/dL) 0.5 AST (17 - 59 U/L) 24 ALT (21 - 72 U/L) 52 Alkaline Phosphatase (< 127 U/L) 51 Troponin I (<0.11 ng/ml) < 0.01 Total Protein (6.3 - 8.2 g/dL) 7.1 Albumin (3.5 - 5.0 g/dL) 4.2 Globulin (1.9 - 4.2 gm/dL) 2.9 Albumin/Globulin Ratio (1.1 - 2.2 %) 1.4 TSH (0.270 - 4.200 uIU/mL) 1.590 Free T4 (0.64 - 1.79 ng/dL) 0.96 Coagulation PT (9.4 - 12.5 SEC) 10.7 INR (0.90 - 1.17) 1.02 APTT (25 - 37 SEC) 29 D-Dimer (70 - 232 ng/ml) < 200 Hematology CBC w Diff NO MAN DIFF REQ WBC (4.8 - 10.8 /CUMM) 8.1 RBC (4.70 - 6.10 /CUMM) 4.79 Hgb (14.0 - 18.0 G/DL) 14.6 Hct (42 - 52 %) 44.0 MCV (80.0 - 94.0 FL) 91.9 MCH (27.0 - 31.0 PG) 30.5 RDW (11.5 - 14.5 %) 13.7 Plt Count (130 - 400 /CUMM) 214 MPV (7.4 - 10.4 FL) 9.8 Gran % (42.2 - 75.2 %) 61.0 Lymphocytes % (20.5 - 51.1 %) 28.0 Monocytes % (1.7 - 9.3 %) 8.0 Eosinophils % (0 - 5 %) 1.8 Basophils % (0.0 - 2.0 %) 1.2 Absolute Granulocytes (1.4 - 6.5 /CUMM) 4.9 Absolute Lymphocytes (1.2 - 3.4 /CUMM) 2.3 Absolute Monocytes (0.10 - 0.60 /CUMM) 0.6 Absolute Eosinophils (0.0 - 0.7 /CUMM) 0.1 Absolute Basophils (0.0 - 0.2 /CUMM) 0.1 PUBS MCHC (33.0 - 37.0 G/DL) 33.2 Diagnostic Data EKG Results 01/21/2017) sinus rhythm, first-degree AV block, and small inferior Q waves. No significant change when compared to previous tracing. CXR Results (01/20/2017) no acute cardiopulmonary process. Assessment/Plan Assessment/Plan 56-year-old male with long-standing history of tobacco use, COPD, HTN, HLD, DM, GERD, and CAD with unstable angina pectoris prompting cardiac cath following a positive nuclear stress test that revealed a totally occluded dominant RCA with distal collateral flow and unsuccessful attempts at PCI who presented to the ED on 01/20/2017 with complaints of chest discomfort. Fortunately, the patient has ruled out for myocardial necrosis by serial cardiac enzymes and has had no significant electrocardiographic changes. Unfortunately, he continues to have chest discomfort that he thinks improved following the administration of topical nitrates. It is not clear why he did not have a troponin I elevation given the prolonged nature of his symptoms, unless the chest discomfort is not on a coronary basis. Recommendations: * Continue on telemetry. * Give GI cocktail times one. * Continue statin, antiplatelets, and ARB. * Discontinue amlodipine. * Continue topical nitrates with a 10-12 hour nitrate free interval to prevent tolerance. * Decrease dosage of beta tonio from metoprolol 37.5 mg daily to 12.5 mg daily. * Start on Ranexa (ranolazine) 500 mg twice daily, as blood pressure and pulse tolerate. Ranolazine is felt to work by prevention of calcium overload and the subsequent increase in diastolic tension due to the inhibition of late inward sodium channels. * Decrease atorvastatin dosage from 40 mg daily to 20 mg daily, given interaction of ranolazine and atorvastatin. Ranolazine increases serum levels of atorvastatin. * Repeat ECG in a.m. to check QT interval. * We will also consider Mr. Dawn as a candidate for EECP (enhanced external counterpulsation). EECP is a technique that increases arterial blood pressure and retrograde aortic blood flow (diastolic augmentation). EECP has been shown to decrease anginal symptoms and exercise capacity through mechanisms that are felt to include: improvements in stress-induced myocardial perfusion, left ventricular diastolic filling, peripheral arterial flow related dilatation, and endothelial function. * Continue prophylaxis for deep venous thrombosis. Further recommendations will follow, Thank you. Consult Acknowledgment - Thank you for your consult request.
--- NOTE | 2017-01-21 11:27 | PN- Housestaff ---
Subjective Follow-up For: 1- chest heaviness, intermittent (Unstable angina) 2- episodes of hypoglycemia, with exercises during cardiac rehabilitation Subjective: I saw and examined the pt at bedside. He is alert and oriented, in no distress, reports chest pain of 2/10 with no radiation, no diaphoresis, no dizziness or palpitation. Denies SOB, only had it yesterday when he experienced the chest tightness with diaphoresis at home before coming to the ED. Review of Systems Constitutional: Denies: chills, fever, malaise. EENTM: Reports: no symptoms. Cardiovascular: Reports: chest pain (2/10 no radiation). Denies: palpitations, peripheral edema. Respiratory: Denies: cough, short of breath, sputum production. Gastrointestinal: Reports: no symptoms. Genitourinary: Reports: no symptoms. Musculoskeletal: Reports: no symptoms. Skin: Reports: no symptoms. Neurological/Psychological: Reports: no symptoms. Hematologic/Endocrine: Reports: no symptoms. Objective Last 24 Hrs of Vital Signs/I&O Vital Signs Date Time Temp Pulse Resp B/P B/P Pulse O2 O2 Flow FiO2 Mean Ox Delivery Rate 01/21 1229 68 130/70 01/21 1033 64 118/80 01/21 0900 Room Air 01/21 0900 97.5 60 18 126/80 96 Room Air 01/21 0754 97.0 80 20 109/71 96 Room Air 01/21 0731 79 16 115/73 97 Room Air 01/21 0636 71 15 106/63 97 Room Air 01/21 0310 67 16 106/65 95 Room Air 01/21 0001 96.6 59 16 105/65 98 Room Air 01/20 2235 97.9 67 18 120/68 97 Room Air 01/20 2128 Room Air 01/20 2115 71 112/78 01/20 2040 97.3 71 20 120/80 95 Room Air Intake & Output 01/21 1600 01/21 0800 01/21 0000 Intake Total Output Total Balance Patient 83.461 kg 83.461 kg Weight Weight Reported by Patient Reported by Patient Measurement Method Physical Exam General Appearance: Alert, Oriented X3, Cooperative, No Acute Distress Skin: No Significant Lesion Skin Temp/Moisture Exam: Warm/Dry Sepsis Skin Exam (color): Normal for Ethnicity HEENT: Atraumatic, EOMI, Mucous Membr. moist/pink Neck: Supple, No JVD Cardiovascular: Regular Rate, Normal S1, Normal S2, No Murmurs Lungs: Clear to Auscultation, Normal Air Movement Abdomen: Normal Bowel Sounds, Soft Neurological: Normal Gait, Normal Speech, Strength at 5/5 X4 Ext Extremities: No Clubbing, No Cyanosis, No Edema, Normal Pulses Vascular: Normal Pulses, Pulses Symmetrical Current Medications: Current Medications Sig/Valerie Start time Last Medication Dose Route Stop Time Status Admin Acetaminophen 0 .STK-MED ONE 01/21 0321 DC PO Acetaminophen 650 MG Q6P PRN 01/21 0145 AC 01/21 PO 0330 Acetaminophen 1,000 MG Q6P PRN 01/21 0145 AC IV Acetaminophen 975 MG ONCE ONE 01/20 2115 DC 01/20 PO 01/20 Amlodipine Besylate 2.5 MG DAILY 01/21 1000 AC PO Aspirin 81 MG DAILY 01/21 1000 AC 01/21 PO 1030 Aspirin 325 MG ONCE ONE 01/20 2115 DC 01/20 PO 01/20 Atorvastatin Calcium 80 MG 1700 01/21 1700 AC PO Clopidogrel Bisulfate 75 MG DAILY 01/21 1000 AC 01/21 PO 1030 Heparin Sodium 5,000 UNIT Q8 01/21 0600 AC 01/21 (Porcine) SC 0648 Insulin Aspart 0 TIDAC 01/21 0800 AC 01/21 SC 0844 Ketorolac 30 MG ONCE ONE 01/20 2345 DC 01/21 Tromethamine IV 01/20 2346 0005 Losartan Potassium 25 MG DAILY 01/21 1000 AC PO Metoprolol Tartrate 37.5 MG DAILY 01/21 1015 AC 01/21 PO 1229 Metoprolol Tartrate 25 MG BID 01/21 1000 DC PO Metoprolol Tartrate 12.5 MG BID 01/21 1000 DC PO Morphine Sulfate 2 MG Q4P PRN 01/21 0145 AC 01/21 IV 0924 Morphine Sulfate 4 MG ONCE ONE 01/20 2345 DC IV 01/20 2346 Multivitamins 1 TAB DAILY 01/21 1000 AC 01/21 PO 1030 Nitroglycerin 1 GM Q6 01/21 1200 AC 01/21 TOP 1230 Nitroglycerin 0.4 MG Q 5 MINUTES X 3 DO.. 01/21 0200 AC SL Nitroglycerin 2 GM Q6 01/20 2359 DC 01/21 TOP 0649 Last 24 Hrs of Lab/Rojas Results Last 24 Hrs of Labs/Mics: Laboratory Tests 01/21/17 1016: Troponin I < 0.01 01/21/17 0505: Anion Gap 10, Estimated GFR > 60, BUN/Creatinine Ratio 24.0, Troponin I < 0.01, Triglycerides 334 H, Cholesterol 127, LDL Cholesterol, Calc 20 L, HDL Cholesterol 41, Cholesterol/HDL Ratio 3, CBC w Diff NO MAN DIFF REQ, RBC 4.50 L , MCV 91.3, MCH 30.6, RDW 13.5, MPV 9.3, Gran % 52.8, Lymphocytes % 36.0, Monocytes % 8.7, Eosinophils % 2.0, Basophils % 0.5, Absolute Granulocytes 3.7, Absolute Lymphocytes 2.5, Absolute Monocytes 0.6, Absolute Eosinophils 0.1, Absolute Basophils 0, PUBS MCHC 33.5 01/21/17 0400: Troponin I Cancelled 01/20/17 2120: Anion Gap 13, Estimated GFR > 60, BUN/Creatinine Ratio 19.0, Glucose 148 H, Hemoglobin A1c 7.3 H, Calcium 9.5, Total Bilirubin 0.5, AST 24, ALT 52, Alkaline Phosphatase 51, Troponin I < 0.01, Total Protein 7.1, Albumin 4.2, Globulin 2.9, Albumin/Globulin Ratio 1.4, TSH 1.590, Free T4 0.96, PT 10.7, INR 1.02, APTT 29, D-Dimer < 200, CBC w Diff NO MAN DIFF REQ, RBC 4.79, MCV 91.9, MCH 30.5, RDW 13.7, MPV 9.8, Gran % 61.0, Lymphocytes % 28.0, Monocytes % 8.0, Eosinophils % 1.8, Basophils % 1.2, Absolute Granulocytes 4.9, Absolute Lymphocytes 2.3, Absolute Monocytes 0.6, Absolute Eosinophils 0.1, Absolute Basophils 0.1, PUBS MCHC 33.2 Microbiology 01/22 836 UPPER RESP: Surveillance Culture - COLB 01/22 836 GI: Surveillance Culture - COLB Assessment/Plan Assessment: Mr. Dawn is a 56-year-old male with a past medical history of HTN, non- insulin-dependent diabetes mellitus, coronary artery disease status post catheterization without any angioplasty, hyperlipidemia, GERD, presented to the ED with chief complaint of substernal chest pressure that he grades as 6-6-7 out of 10. 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 He also experienced diaphoresis. Pain did not go away with nitroglycerine. Reports some pain relief with nitropatch. Of note, patient has been episodes of chest pain, not related to exertion, almost 2-3 times a week since September this year, he had a stress test done by Dr. Thompson on 11/03/16, which was abnormal. He was told to come to the ED if he developed chest pain. He was admitted to [facility] on 11/23/16 with chest pain ( similar pain as is somebody is sitting on his chest) with radiation to the left shoulder and subsequently was transferred to [facility] for catheterization on 11/28/2016 that revealed: LM-patent, LAD-30% ostial stenosis with diffuse luminal irregularities, LCx-20% ostial stenosis with luminal irregularities, RCA-dominant with total occlusion proximally at the site of the RV branch take off with visualization of the distal vessel by intra-and inter- collaterals, and LV gram-EF 55%. Multiple attempts were made to place stent in the RCA but were unsuccessful. He was told that they will optimize him on medical management before considering a bypass surgery. He has been going to a cardiac rehab program 3x a week. Patient is being observed in the ICU as a tele hold for close monitoring and serial troponin and EKGs. Problem list and plan: 1- Unstable angina In the setting of a known CAD with occluded RCA, stenting failed, is following up outpatient with a cardiac rehabilitation program. most likely need bypass surgery. EKGs unremarkable, troponins negative x3 * Continue cardiac monitoring * Nitrobid 1 mg Q6 * Continue metoprolol 37.5 mg daily for now * Continue aspirin, and atorvastatin 80 mg daily * follow up cardiology recommendations 2- History of HTN * continue metoprolol 37.5 mg daily * losartan 25 daily, amlodipine 2.5 mg daily (on hold as the pt has been hypotensive) 3- History of diabetes Pt reports hypoglycemia that has been occurring right after each cardiac rehab session. He has BS of 150 before the exercise and 50 after wards. He take Metformin, glyburide and Januvia. * Accuchecks TIDAC * Insulin Novolog SS while in hospital * need to adjust oral antiglycemic agents before discharge 4. GERD His chst pain could be partly due to GERD * ordered GI cocktail Pain control: Nitrobid 1 gram Q6, Tylenol for mild pain, IV acetaminophen for mod pain, Morphine for severe pain. Diet Heart Healthy diet DVTpx SC heparin FULL CODE Problem List: 1. Unstable angina 2. Diabetes 3. Hypertension 4. Hyperlipidemia Pain Ratin Pain Location: substernal Pain Goal: Pain 4 or less Pain Plan: Nitrobid 1 gram Q6, Tylenol for mild pain, IV acetaminophen for mod pain, Morphine for severe pain. Tomorrow's Labs & Rationales: BEP, Mg (monitor electrolytes)
[2017-01-21 14:26] VITALS: BP 110/68
--- NOTE | 2017-01-21 14:35 | NUR ---
PER RACE BOARD ATTENDANT DR RAO HOLD LOSARTAN AND AMLODIPINE AT THIS TIME FOR A BP 110/68, P 64. WILL CONTINUE TO MONITOR.
--- NOTE | 2017-01-21 16:10 | NUR ---
AAO OOB TO BR KAYLI WELL C/O PAIN #1 OUT OF 10 BUT MORE UPPER CHEST NEAR THROAT. MONITOR 1AVB NSR, VD QS, DIAB, ACCU CHECKS TID HS, HH CARB DIET, VSS FOR NOW TELE HOLD.
[2017-01-21 17:14] VITALS: BP 100/60
--- NOTE | 2017-01-21 18:30 | NUR ---
VS BY DR SANTAMARIA AND B/P 100/80 REPORTED TO TAP BUILDER DNGIVE NITRO PASTE REMOVE OLD ONE.
--- NOTE | 2017-01-21 19:58 | NUR ---
PT A TELE HOLD. PT A/OX3, FOLLOWS COMMANDS. C/O UPPER CHEST DISCOMFORT-RATES 1 OUT OF 10 AT PRESENT-WILL GIVE GI COCKTAIL WHEN RECEIVE FROM PHARMACY-SEE EMAR. BREATH SOUNDS CLEAR THOUGHOUT BILATERALLY. NO COUGH, SOB OR RESP DISTRESS NOTED AT PRESENT. MONITOR SHOWS NSR, NO ECTOPY NOTED AT PRESENT. ABD SOFT, NONTENDER, NONDISTENDED, POSITIVE BOWEL SOUNDS. VOIDS. SKIN INTACT
--- NOTE | 2017-01-21 22:17 | NUR ---
PT STATES NO EFFECT FROM GI COCKTAIL-EPIGSTRIC PAIN REMAINS, STILL 1 OUT 10 AT PRESENT. WILL MONITOR
[2017-01-21 23:00] VITALS: BP 112/64
[2017-01-22 06:49] LABS: ABSOLUTE BASOPHIL COUNT 0.1 /CUMM (0.0-0.2); ABSOLUTE EOSINOPHIL COUNT 0.2 /CUMM (0.0-0.7); ABSOLUTE GRANULOCYTE CT 3.6 /CUMM (1.4-6.5); ABSOLUTE LYMPH COUNT 2.9 /CUMM (1.2-3.4); ABSOLUTE MONOCYTE COUNT 0.6 /CUMM (0.10-0.60); BASOPHIL % 0.8 % (0.0-2.0); EOSINOPHIL % 2.2 % (0-5); GRANULOCYTE % 49.1 % (42.2-75.2); HEMATOCRIT 44.6 % (42-52); MEAN CORPUSCULAR HGB 30.3 PG (27.0-31.0); MEAN CORPUSCULAR HGB CONC 32.8 G/DL (33.0-37.0); MEAN CORPUSCULAR VOLUME 92.3 FL (80.0-94.0); MEAN PLATELET VOLUME 10.5 FL (7.4-10.4); PLATELET COUNT 208 /CUMM (130-400); RBC DISTRIBUTION WIDTH 13.8 % (11.5-14.5); RED BLOOD CELL CT 4.83 /CUMM (4.70-6.10); WHITE BLOOD CELL COUNT 7.3 /CUMM (4.8-10.8)
--- NOTE | 2017-01-22 07:36 | PN- Housestaff ---
See Addendum Subjective Follow-up For: chest pain Tele-Events Since Last Visit: no overnight events, sinus rhythm, bradycardia to 40s overnight. Subjective: I saw and examined the patient this a.m. Patient reports constant feeling of heaviness on the chest in the middle, 2/10 severity, no radiation. Denies diaphoresis or dizziness or palpitations. Reports he has had this constant pain since October 2016, not related to exertion. He has had not had a bowel movement since he came to the hospital. Review of Systems Constitutional: Denies: chills, diaphoresis, fever, malaise, weakness. EENTM: Reports: no symptoms. Cardiovascular: Reports: chest pain. Denies: orthopena, palpitations, peripheral edema. Respiratory: Denies: cough, short of breath, sputum production. Gastrointestinal: Denies: abdominal pain, changes in stool. Genitourinary: Reports: no symptoms. Musculoskeletal: Reports: no symptoms. Skin: Reports: no symptoms. Neurological/Psychological: Reports: no symptoms. Objective Last 24 Hrs of Vital Signs/I&O Vital Signs Date Time Temp Pulse Resp B/P B/P Pulse O2 O2 Flow FiO2 Mean Ox Delivery Rate 01/22 1147 72 120/70 01/22 1035 64 130/70 01/22 0000 99 Room Air Room Air 01/21 2300 97.0 56 20 112/64 99 Room Air Room Air 01/21 1714 96.7 58 23 100/60 96 Room Air 01/21 1426 64 110/68 01/21 1229 68 130/70 Intake & Output 01/22 1600 01/22 0800 01/22 0000 Intake Total 120 480 Output Total 400 Balance 120 80 Intake, Oral 120 480 Number 0 0 Bowel Movements Output, Urine 400 Physical Exam General Appearance: Alert, Oriented X3, Cooperative, No Acute Distress Skin: No Rashes, No Breakdown, No Significant Lesion Skin Temp/Moisture Exam: Warm/Dry Sepsis Skin Exam (color): Normal for Ethnicity HEENT: Atraumatic, EOMI, Mucous Membr. moist/pink Neck: Supple Cardiovascular: Regular Rate, Normal S1, Normal S2, No Murmurs Lungs: Clear to Auscultation, Normal Air Movement Abdomen: Normal Bowel Sounds, Soft, No Tenderness Neurological: Normal Speech, Normal Tone Extremities: No Edema Vascular: Normal Pulses, Pulses Symmetrical Current Medications: Current Medications Sig/Valerie Start time Last Medication Dose Route Stop Time Status Admin Acetaminophen 650 MG Q6P PRN 01/21 0145 AC 01/22 PO 0559 Acetaminophen 1,000 MG Q6P PRN 01/21 0145 AC IV Amlodipine Besylate 2.5 MG DAILY 01/21 1000 DC PO Aspirin 81 MG DAILY 01/21 1000 AC 01/22 PO 1033 Atorvastatin Calcium 20 MG 1700 01/22 1700 AC PO Atorvastatin Calcium 80 MG 1700 01/21 1700 DC 01/21 PO 1657 Clopidogrel Bisulfate 75 MG DAILY 01/21 1000 AC 01/22 PO 1033 Heparin Sodium 5,000 UNIT Q8 01/21 0600 AC 01/22 (Porcine) SC 0558 Insulin Aspart 0 TIDAC 01/21 0800 AC 01/22 SC 1148 Losartan Potassium 25 MG DAILY 01/21 1000 AC 01/22 PO 1147 Metoprolol Tartrate 12.5 MG DAILY 01/22 1000 AC PO Metoprolol Tartrate 37.5 MG DAILY 01/21 1015 DC 01/21 PO 1229 Morphine Sulfate 2 MG Q4P PRN 01/21 0145 AC 01/21 IV 0924 Multivitamins 1 TAB DAILY 01/21 1000 AC 01/22 PO 1033 Nitroglycerin 1 GM Q6 01/21 1200 DC 01/21 TOP 2309 Nitroglycerin 0.4 MG Q 5 MINUTES X 3 DO.. 01/21 0200 AC SL Ranolazine 500 MG BID 01/22 1000 AC 01/22 PO 1035 Last 24 Hrs of Lab/Rojas Results Last 24 Hrs of Labs/Mics: Laboratory Tests 01/22/17 0549: Anion Gap 12, Estimated GFR > 60, BUN/Creatinine Ratio 15.0, Magnesium 2.1, CBC w Diff NO MAN DIFF REQ, RBC 4.83, MCV 92.3, MCH 30.3, RDW 13.8, MPV 10.5 H, Gran % 49.1, Lymphocytes % 39.8, Monocytes % 8.1, Eosinophils % 2.2, Basophils % 0.8, Absolute Granulocytes 3.6, Absolute Lymphocytes 2.9, Absolute Monocytes 0.6 , Absolute Eosinophils 0.2, Absolute Basophils 0.1, PUBS MCHC 32.8 L Assessment/Plan Assessment: Mr. Dawn is a 56-year-old male with a past medical history of HTN, non- insulin-dependent diabetes mellitus, coronary artery disease status post catheterization without any angioplasty, hyperlipidemia, GERD, presented to the ED with chief complaint of substernal chest pressure that he grades as 6-6-7 out of 10. 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 He also experienced diaphoresis. Pain did not go away with nitroglycerine. Reports some pain relief with nitropatch. Of note, patient has been episodes of chest pain, not related to exertion, almost 2-3 times a week since September this year, he had a stress test done by Dr. Thompson on 11/03/16, which was abnormal. He was told to come to the ED if he developed chest pain. He was admitted to [facility] on 11/23/16 with chest pain ( similar pain as is somebody is sitting on his chest) with radiation to the left shoulder and subsequently was transferred to [facility] for catheterization on 11/28/2016 that revealed: LM-patent, LAD-30% ostial stenosis with diffuse luminal irregularities, LCx-20% ostial stenosis with luminal irregularities, RCA-dominant with total occlusion proximally at the site of the RV branch take off with visualization of the distal vessel by intra-and inter- collaterals, and LV gram-EF 55%. Multiple attempts were made to place stent in the RCA but were unsuccessful. He was told that they will optimize him on medical management before considering a bypass surgery. He has been going to a cardiac rehab program 3x a week. Patient is being observed in the ICU as a tele hold for close monitoring and serial troponin and EKGs. Problem list and plan: Unstable angina In the setting of a known CAD with occluded RCA, stenting failed, is following up outpatient with a cardiac rehabilitation program. most likely need bypass surgery. EKGs unremarkable, troponins negative x3 * Continued cardiac monitoring * Discontinued Nitrobid * decreased metoprolol 12.5 mg daily and added Ranolazine 500 mg BID * EKG to check Qtc after Ranolazine * Continue aspirin, and decreased atorvastatin to 20 mg daily * patient is instructed to follow up with cardiology in a week *patient told us that he has a stressful work habit (working at nights and is not able to get enough sleep and is working long hours) he will be off work for a week until he follows up with Dr. Thompson. He may need to modify working shifts later on and will discuss this with Dr. Thompson in the office further. History of HTN * continue metoprolol 12.5 mg daily * losartan 25 daily, will resume amlodipine 2.5 mg daily at discharge as it is a CCB and may alleviate pain from possible esophageal spasm History of diabetes Pt reports hypoglycemia that has been occurring right after each cardiac rehab session. He has BS of 150 before the exercise and 50 after wards. He take Metformin, glyburide and Januvia. * Accuchecks TIDAC * Insulin Novolog SS while in hospital * We discontinued Glyburide and continued Metformin at discharge (500 mg BID), will follow up with PCP for further adjustment of the blood sugar. GERD His chest pain could be partly due to GERD * ordered GI cocktail * Talked to GI, Dr. Nye on the phone who recommended to discharge the patient on Nexium twice a day with a month's supply and follow-up with GI outpatient for further evaluation of possible GI related chest pain, including esophageal spasm Pain control: Nitrobid 1 gram Q6, Tylenol for mild pain, IV acetaminophen for mod pain, Morphine for severe pain. Diet Heart Healthy diet DVTpx SC heparin FULL CODE Problem List: 1. Unstable angina 2. Diabetes 3. Hypertension 4. Hyperlipidemia 5. Chest pain Pain Ratin Pain Location: mid-chest tightness,. Left shoulder sharp pain Pain Goal: Pain 4 or less Pain Plan: SL nitroglycerin Tylenol Tomorrow's Labs & Rationales: none
--- NOTE | 2017-01-22 07:42 | NUR ---
PT SLEPT MOST OF NIGHT. C/O UPPER CHEST OGSQDENK-3-0 OUT OF 10 THOUGHOUT SHIFT-PT STATED NO CHANGE IN PAIN, NONRADIATING, STATED HAS NOT GOTTEN WORSE. HELD 0600 DOSE OF NTP SECONDARY TO BP-100. OOB INDEPENDENTLY-GAIT STEADY. NO OTHER CHANGE IN PT ASSESSMENTS THOUGHOUT SHIFT
[2017-01-22 08:00] VITALS: BP 110/74
--- NOTE | 2017-01-22 10:16 | PN- Cardiology ---
Subjective Subjective: "Feel about the same." No bowel movement since admission. He typically has a bowel movement every other day. Objective Vital Signs and I&Os Vital Signs Date Time Temp Pulse Resp B/P B/P Pulse O2 O2 Flow FiO2 Mean Ox Delivery Rate 01/22 0000 99 Room Air Room Air 01/21 2300 97.0 56 20 112/64 99 Room Air Room Air 01/21 1714 96.7 58 23 100/60 96 Room Air 01/21 1426 64 110/68 01/21 1229 68 130/70 01/21 1033 64 118/80 Intake & Output 01/22 1600 01/22 0800 01/22 0000 01/21 1600 01/21 0800 01/21 0000 Intake Total 120 480 560 Output Total 400 400 Balance 120 80 160 Intake, Oral 120 480 560 Number 0 0 Bowel Movements Output, Urine 400 400 Patient 184 lb 184 lb Weight Weight Reported by Patient Reported by Patient Measurement Method Physical Exam: Well-developed, well-nourished middle-aged male in no acute distress. Vital signs: See above. Neck no JVD, no bruits. Lungs: Clear to auscultation. Heart: S1, S2. Abdomen: Soft, nontender, positive bowel sounds. Extremities: No edema. Assessment/Plan Assessment/Plan 56-year-old male with long-standing history of tobacco use, COPD, HTN, HLD, DM, GERD, and CAD with unstable angina pectoris prompting cardiac cath following a positive nuclear stress test that revealed a totally occluded dominant RCA with distal collateral flow and unsuccessful attempts at PCI, without any other significant areas of stenosis who presented to the ED on 01/20/2017 with complaints of chest discomfort. Fortunately, the patient has ruled out for myocardial necrosis by serial cardiac enzymes and has had no significant electrocardiographic changes. Unfortunately, he continues to have chest discomfort that he thinks improved following the administration of topical nitrates. It is not clear why he did not have a troponin I elevation given the prolonged nature of his symptoms, unless the chest discomfort is not on a coronary basis. Recommendations: * Continue present cardiac regimen, but add a 10-12 hour nitrate free interval to his long-acting nitrate dosing. * Continue on ranolazine 500 mg twice daily. * Consider GI input given his continued "constant" chest discomfort, history of GERD, CTA findings of "The stomach isconsiderably distended by a recently ingested food (? gastroparesis), no BM since admission, etc. * Continue DVT prophylaxis. * I'm in the process of trying to set him up for outpatient EECP. Continue telemetry? Yes
[2017-01-22] MEDS ORDERED: RANEXA500 M1 PO (11:21)
[2017-01-22] MEDS ORDERED: ATORVASTATIN CA20 M1 PO (11:24)
[2017-01-22] MEDS ORDERED: METOPROLOL TART25 M1 PO (11:24)
[2017-01-22] MEDS ORDERED: LOSARTAN POTASS25 M1 PO (11:24)
[2017-01-22] MEDS ORDERED: ATIVAN0.5 M1 PO (12:50)
[2017-01-22] MEDS ORDERED: NEXIUM40 M1 PO (13:34)
[2017-01-22] MEDS ORDERED: METFORMIN HCL500 M2 PO (14:13)
[2017-01-22 14:56] VITALS: BP 116/64
== END 2017-01-22 15:52 ==
LOC: ERH 20:28 → ERHI 01-21 01:21 → CRI 01-21 01:21 → ENRESERV 01-21 07:45 → ERHI 01-21 08:30 → CRI 01-21 08:57
PROVIDERS: Emergency Medicine; Internal Medicine Infectious Disease; Ophthalmology; ADMIT Internal Medicine
DX: I25.110 Atherosclerotic heart disease of native coronary artery with unstable angina pectoris (principal); R07.89 Other chest pain; I10 Essential (primary) hypertension; E78.5 Hyperlipidemia, unspecified; E11.9 Type 2 diabetes mellitus without complications; Z87.891 Personal history of nicotine dependence; Z79.84 Long term (current) use of oral hypoglycemic drugs; Z79.82 Long term (current) use of aspirin
CPT/HCPCS: 36415; 82436; 93005; 93010; 96372; 96374; 96375; G0378; J1644; J1885; J3490